=== PATIENT | female | born 1945 | race Caucasian/White ===

== ENCOUNTER 2020-09-23 05:20 | Day surgery (SDC) | payer OTHER, BC ==
[2020-09-20 10:09] VITALS: BMI 32.3
[2020-09-23] MEDS ORDERED: LIDOCAINE HCL 1%, 10 MG/ML (20ML VIAL) ONE (07:15)
[2020-09-23] MEDS ORDERED: BUPIVACAINE HCL/PF 0.25% (2.5MG/ML) 10 ML VIAL ONE (07:16)
[2020-09-23] MEDS ORDERED: MIDAZOLAM HCL 2 MG/2 ML SINGLE DOSE VIAL ONE (07:30)
[2020-09-23] MEDS ORDERED: PROPOFOL 20 ML ONE ×2 (07:31)
[2020-09-23] MEDS ORDERED: ROCURONIUM BROMIDE 100 MG/10 ML VIAL ONE (07:32)
[2020-09-23] MEDS ORDERED: SUCCINYLCHOLINE CHLORIDE 200 MG/10 ML SYRINGE ONE (07:32)
[2020-09-23] MEDS ORDERED: ceFAZolin SODIUM 1 GM VIAL IVPB ONE (08:15)
[2020-09-23] MEDS ORDERED: BUPIVACAINE HCL/PF 0.5% (5 MG/ML) 30 ML VIAL IJ ONE (08:36)
[2020-09-23] MEDS ORDERED: LIDOCAINE HCL 1%, 10 MG/ML (20ML VIAL) PNB ONE (08:39)
[2020-09-23 11:45] VITALS: PULSE 77; TEMP 97.6
[2020-09-23 11:51] VITALS: BP 128/56
[2020-09-23] MEDS ORDERED: ONDANSETRON 4 MG/2 ML VIAL IVPUSH PRN (11:55)
[2020-09-23] MEDS ORDERED: oxyCODONE HCL 5 MG TABLET PO PRN ×2 (11:55)
[2020-09-23] MEDS ORDERED: LACTATED RINGERS SOLUTION 1,000 ML IV SCH (12:00)
== END 2020-09-23 11:52 | disposition home or self-care (01) ==
LOC: JASU-SURG 05:20
PROVIDERS: ATTEND Internal Medicine
PROC: 0JH606Z Insertion of Pacemaker, Dual Chamber into Chest Subcutaneous Tissue and Fascia, Open Approach (ICD-10-PCS; 2020-09-23)
PROC: 0JPT0PZ Removal of Cardiac Rhythm Related Device from Trunk Subcutaneous Tissue and Fascia, Open Approach (ICD-10-PCS; principal; 2020-09-23 07:30)
DX: Z45.010 Encounter for checking and testing of cardiac pacemaker pulse generator [battery] (principal); I49.5 Sick sinus syndrome; I10 Essential (primary) hypertension
CPT/HCPCS: 33228; C1785; 88300-TC; 93005; 93010; 94760

== ENCOUNTER 2021-06-22 08:50 | Emergency (ER) | payer OTHER, BC ==
[2021-06-22 08:59] VITALS: BMI 36.6
[2021-06-22 09:01] VITALS: TEMP 98.5
[2021-06-22] MEDS ORDERED: LIDOCAINE 5% TOPICAL PATCH TP ONE (09:43)
[2021-06-22] MEDS ORDERED: ACETAMINOPHEN 325 MG TABLET (FP) PO ONE (09:43)
[2021-06-22] MEDS ORDERED: LIDOCAINE 5% TOPICAL PATCH ONE (09:59)
[2021-06-22] MEDS ORDERED: ACETAMINOPHEN 325 MG TABLET (FP) ONE (09:59)
[2021-06-22] MEDS ORDERED: CODEINE SO4 30 MG TABLET PO ONE (11:06)
[2021-06-22 12:53] VITALS: BP 132/83; PULSE 81
[2021-06-22] MEDS ORDERED: LIDOCAINE PATCH REMOVAL MC SCH (22:00)
== END 2021-06-22 12:55 | disposition home or self-care (01) ==
LOC: JER 08:50
DX: S40.021A Contusion of right upper arm, initial encounter (principal); S20.211A Contusion of right front wall of thorax, initial encounter; W19.XXXA Unspecified fall, initial encounter; Y92.9 Unspecified place or not applicable
CPT/HCPCS: 71045-TC-FY; 71101-TC-RT-FY; 73060-TC-RT-FY; 99284-25

== ENCOUNTER 2021-10-14 13:17 | Observation (INO) | payer OTHER, BC ==
[2021-10-14] MEDS ORDERED: METHOCARBAMOL 500 MG TABLET PO ONE (14:43)
[2021-10-14] MEDS ORDERED: ACETAMINOPHEN 325 MG TABLET (FP) PO ONE (14:43)
[2021-10-14] MEDS ORDERED: ACETAMINOPHEN 325 MG TABLET (FP) ONE (15:04)
[2021-10-14] MEDS ORDERED: METHOCARBAMOL 500 MG TABLET ONE (15:04)
[2021-10-14 16:39] LABS: BASO % 0.8 % (0-2.0); EOS % 1.8 % (0-4.5); HEMATOCRIT 37.3 % (32.4-45.2); HEMOGLOBIN 13.2 GM/dL (10.7-15.3); LYMPH % 22.1 % (8-40); MCH 29.7 pg (25.7-33.7); MCHC 35.5 g/dl (32.0-36.0); MEAN CELL VOLUME 83.7 fl (80-96); MEAN PLT VOLUME 8.1 fl (7.5-11.1); NEUT % 66.3 % (42.8-82.8); PLATELET COUNT 203 10^3/uL (134-434); RBC 4.46 M/mm3 (3.60-5.2); RDW 14.8 % (11.6-15.6); WHITE BLOOD COUNT 7.2 K/mm3 (4.0-10.0)
[2021-10-14 17:01] LABS: CHLORIDE 107 mmol/L (98-107); SODIUM 141 mmol/L (136-145)
[2021-10-14 17:03] LABS: ANION GAP 10 MMOL/L (8-16); BLOOD UREA NITROGEN 21.3 mg/dL (7-18); CALCIUM 9.2 mg/dL (8.5-10.1); CO2 24 mmol/L (21-32)
[2021-10-14 17:04] LABS: ALBUMIN 3.6 g/dl (3.4-5.0); GLUCOSE,RANDOM 94 mg/dL (74-106)
[2021-10-14 17:07] LABS: CREATININE 0.6 mg/dL (0.55-1.3); SGOT/AST 21 U/L (15-37); SGPT/ALT 26 U/L (13-61)
[2021-10-14 17:08] LABS: TOT PROT 7.5 g/dl (6.4-8.2)
[2021-10-14 17:09] LABS: BILIRUBIN,TOTAL 0.8 mg/dL (0.2-1)
[2021-10-14 17:10] LABS: ALK PHOS 79 U/L (45-117)
[2021-10-14 21:24] LABS: EPI CELLS 0 /uL (0-25.1); HYALINE CASTS 2 /uL (0-3.1); URINE APPEARANCE CLOUDY; URINE BACTERIA >9,000 /uL (0-1359); URINE BILIRUBIN NEGATIVE (NEGATIVE); URINE COLOR YELLOW; URINE GLUCOSE (UA) NEGATIVE (NEGATIVE); URINE KETONE NEGATIVE (NEGATIVE); URINE LEUK ESTERASE 2+ (NEGATIVE); URINE NITRITE POSITIVE (NEGATIVE); URINE PROTEIN TRACE (NEGATIVE); URINE RBC 14 /uL (0-23.9); URINE UROBILINOGEN 0.2 mg/dL (0.2-1.0); URINE WBC 534 /uL (0-25.8)
[2021-10-14] MEDS ORDERED: ACETAMINOPHEN 1000 MG/100 ML VIAL IVPB ONE (21:30)
[2021-10-14] MEDS ORDERED: ACETAMINOPHEN INJECTION 100 ML IVPB ONE (21:42)
[2021-10-14] MEDS ORDERED: CEFTRIAXONE 1 GM in DEXTROSE 5%-WATER - 50 ML IVPB ONE (23:06)
[2021-10-14] MEDS ORDERED: CEFTRIAXONE 1 GM/50 ML BAG ONE (23:31)
[2021-10-15] MEDS ORDERED: POTASSIUM CHLORIDE TABS 20 MEQ TABLET.ER (FP) PO ONE (01:04)
[2021-10-15] MEDS ORDERED: amLODIPine BESYLATE 5 MG TABLET (FP) ONE (01:27)
[2021-10-15] MEDS: amLODIPine BESYLATE 5 MG TABLET (FP) PO SCH ×2 (01:37→10:03)
[2021-10-15 03:10] VITALS: BMI 30.5
[2021-10-15] MEDS: ACETAMINOPHEN 325 MG TABLET (FP) PO PRN ×3 (03:11→22:24)
[2021-10-15 07:13] LABS: BASO % 0.6 % (0-2.0); EOS % 2.2 % (0-4.5); HEMATOCRIT 36.2 % (32.4-45.2); HEMOGLOBIN 12.8 GM/dL (10.7-15.3); LYMPH % 23.5 % (8-40); MCH 29.4 pg (25.7-33.7); MCHC 35.4 g/dl (32.0-36.0); MEAN CELL VOLUME 82.9 fl (80-96); MEAN PLT VOLUME 8.1 fl (7.5-11.1); MONO % 8.4 % (3.8-10.2); NEUT % 65.3 % (42.8-82.8); PLATELET COUNT 195 10^3/uL (134-434); RBC 4.36 M/mm3 (3.60-5.2); RDW 14.4 % (11.6-15.6); WHITE BLOOD COUNT 6.6 K/mm3 (4.0-10.0)
[2021-10-15 07:35] LABS: CALCIUM 8.8 mg/dL (8.5-10.1)
[2021-10-15 07:36] LABS: ALBUMIN 3.3 g/dl (3.4-5.0); MAGNESIUM 2.2 mg/dL (1.8-2.4)
[2021-10-15 07:37] LABS: PHOSPHOROUS 2.6 mg/dL (2.5-4.9)
[2021-10-15 07:38] LABS: BILIRUBIN,TOTAL 0.8 mg/dL (0.2-1); TOT PROT 7.2 g/dl (6.4-8.2)
[2021-10-15 07:39] LABS: CREATININE 0.5 mg/dL (0.55-1.3)
[2021-10-15] MEDS ORDERED: PT OWN MED DRAWER 7, Y5N ONE (09:16)
[2021-10-15] MEDS ORDERED: ALISKIREN HEMIFUMARATE 300 MG PO SCH (10:00)
[2021-10-15] MEDS: ASPIRIN COATED 81 MG TABLET.EC PO SCH (10:02)
[2021-10-15] MEDS: CHOLECALCIFEROL (VIT D3) 1,000 UNIT (25 MCG) TABLET PO SCH (10:02)
[2021-10-15] MEDS: HYDROCHLOROTHIAZIDE 25 MG TABLET (FP) PO SCH (10:03)
[2021-10-15] MEDS: ENOXAPARIN NA (PORCINE) 40 MG/0.4 ML DISP.SYRIN SQ SCH (10:05)
[2021-10-15] MEDS: POLYETHYLENE GLYCOL (HEALTHYLAX) 3350 17 GM PACKET PO SCH (10:05)
[2021-10-15] MEDS ORDERED: ALISKIREN HEMIFUMARATE 150 MG TABLET PO SCH (10:29)
[2021-10-15] MEDS ORDERED: PIPERACILLIN/TAZOBACTAM 3.375 GM VIAL IVPB ONE (14:01)
[2021-10-15] MEDS ORDERED: DEXTROSE 5%-WATER - 50 ML IVPB ONE (14:01)
[2021-10-15] MEDS: PIPERACILLIN/TAZOB 3.375 GM 3.375 GM in DEXTROSE 5%-WATER - 50 ML IVPB SCH ×2 (14:15→18:46)
[2021-10-15] MEDS ORDERED: FAMOTIDINE 20 MG TABLET PO SCH (22:00)
[2021-10-15] MEDS ORDERED: ATORVASTATIN CA 20 MG TABLET (FP) PO SCH (22:00)
[2021-10-16] MEDS ORDERED: DEXTROSE 5%-WATER - 50 ML IVPB ONE ×2 (01:59→11:38)
[2021-10-16] MEDS ORDERED: PIPERACILLIN/TAZOBACTAM 3.375 GM VIAL IVPB ONE ×2 (01:59→11:38)
[2021-10-16] MEDS: PIPERACILLIN/TAZOB 3.375 GM 3.375 GM in DEXTROSE 5%-WATER - 50 ML IVPB SCH ×2 (02:45→12:13)
[2021-10-16] MEDS: ACETAMINOPHEN 325 MG TABLET (FP) PO PRN (06:21)
[2021-10-16 06:56] LABS: HEMATOCRIT 35.9 % (32.4-45.2); HEMOGLOBIN 12.8 GM/dL (10.7-15.3); MCH 29.6 pg (25.7-33.7); MCHC 35.5 g/dl (32.0-36.0); MEAN CELL VOLUME 83.3 fl (80-96); PLATELET COUNT 216 10^3/uL (134-434); RBC 4.32 M/mm3 (3.60-5.2); RDW 14.4 % (11.6-15.6); WHITE BLOOD COUNT 6.2 K/mm3 (4.0-10.0)
[2021-10-16 07:18] LABS: BLOOD UREA NITROGEN 18.4 mg/dL (7-18); CALCIUM 9.2 mg/dL (8.5-10.1); MAGNESIUM 2.4 mg/dL (1.8-2.4)
[2021-10-16 07:21] LABS: CREATININE 0.7 mg/dL (0.55-1.3); PHOSPHOROUS 3.1 mg/dL (2.5-4.9)
[2021-10-16] MEDS ORDERED: PT OWN MED DRAWER 7, Y5N ONE (10:33)
[2021-10-16] MEDS: ENOXAPARIN NA (PORCINE) 40 MG/0.4 ML DISP.SYRIN SQ SCH (11:20)
[2021-10-16] MEDS: CHOLECALCIFEROL (VIT D3) 1,000 UNIT (25 MCG) TABLET PO SCH (11:20)
[2021-10-16] MEDS: amLODIPine BESYLATE 5 MG TABLET (FP) PO SCH (11:20)
[2021-10-16] MEDS: ASPIRIN COATED 81 MG TABLET.EC PO SCH (11:21)
[2021-10-16] MEDS: HYDROCHLOROTHIAZIDE 25 MG TABLET (FP) PO SCH (11:28)
[2021-10-16] MEDS: POLYETHYLENE GLYCOL (HEALTHYLAX) 3350 17 GM PACKET PO SCH (11:29)
[2021-10-16] MEDS ORDERED: POTASSIUM CHLORIDE TABS 20 MEQ TABLET.ER (FP) PO ONE (13:20)
[2021-10-16 15:30] VITALS: BP 133/67; PULSE 79; TEMP 97.8
== END 2021-10-16 16:58 | disposition home or self-care (01) ==
LOC: JER 13:17 → JERBED 15:04 → J4W 10-15 02:56
PROVIDERS: ATTEND Internal Medicine
PROC: 3E033NZ Introduction of Analgesics, Hypnotics, Sedatives into Peripheral Vein, Percutaneous Approach (ICD-10-PCS; principal; 2021-10-14)
PROC: 3E03329 Introduction of Other Anti-infective into Peripheral Vein, Percutaneous Approach (ICD-10-PCS; 2021-10-14)
PROC: 3E023GC Introduction of Other Therapeutic Substance into Muscle, Percutaneous Approach (ICD-10-PCS; 2021-10-14)
DX: N39.0 Urinary tract infection, site not specified (principal); W18.39XA Other fall on same level, initial encounter; R25.2 Cramp and spasm; Y93.89 Activity, other specified; Y92.89 Other specified places as the place of occurrence of the external cause; E66.9 Obesity, unspecified; Z68.30 Body mass index [BMI] 30.0-30.9, adult; Z95.0 Presence of cardiac pacemaker; I10 Essential (primary) hypertension; E78.5 Hyperlipidemia, unspecified; I48.91 Unspecified atrial fibrillation; M12.80 Other specific arthropathies, not elsewhere classified, unspecified site; Z96.643 Presence of artificial hip joint, bilateral; Z90.49 Acquired absence of other specified parts of digestive tract; Z88.2 Allergy status to sulfonamides; Z29.9 Encounter for prophylactic measures, unspecified
CPT/HCPCS: 36415; 70450-TC; 71045-TC-FY; 72125-TC; 72170-TC-FY; 73562-TC-RT-FY; 80048; 80053; 81003; 82550; 82553; 82962; 83735; 84100; 84443; 84484; 85025; 85027; 87086; 87186; 87804; 93005; 93010; 93306-TC; 93970-TC; 96365; 96372; 96375; 97116-GP; 97161-GP; 99285-25; C9803; G0378; J0131; U0003; U0005

== ENCOUNTER 2022-09-16 04:03 | Day surgery (SDC) | payer OTHER, BC ==
[2022-09-11 09:40] VITALS: BMI 32.2
[2022-09-16] MEDS ORDERED: BUPIVACAINE HCL/PF 0.25% (2.5MG/ML) 10 ML VIAL ONE (07:11)
[2022-09-16] MEDS ORDERED: LIDOCAINE HCL/PF 1% SDV 5ML VIAL ONE (07:12)
[2022-09-16] MEDS ORDERED: methylPREDNISolone ACET (DEPO) 80 MG/1 ML VIAL ONE (07:12)
[2022-09-16] MEDS ORDERED: MIDAZOLAM HCL 2 MG/2 ML SINGLE DOSE VIAL ONE (07:35)
[2022-09-16] MEDS ORDERED: ONDANSETRON 4 MG/2 ML VIAL ONE (07:56)
[2022-09-16] MEDS ORDERED: LIDOCAINE HCL 1%, 10 MG/ML (50 mL VIAL) NR ONE ×2 (07:57)
[2022-09-16] MEDS ORDERED: BUPIVACAINE HCL/PF 0.25% (2.5MG/ML) 10 ML VIAL IJ ONE ×2 (07:58)
[2022-09-16] MEDS ORDERED: methylPREDNISolone ACET (DEPO) 80 MG/1 ML VIAL IM ONE (07:58)
[2022-09-16 08:31] VITALS: RESP 20; TEMP 96.4
[2022-09-16 09:25] VITALS: BP 140/70; PULSE 82
== END 2022-09-16 09:29 | disposition home or self-care (01) ==
LOC: JASU-SURG 04:03
PROVIDERS: ATTEND Neurological Surgery
PROC: 3E0T33Z Introduction of Anti-inflammatory into Peripheral Nerves and Plexi, Percutaneous Approach (ICD-10-PCS; 2022-09-16)
PROC: 3E0T3BZ Introduction of Anesthetic Agent into Peripheral Nerves and Plexi, Percutaneous Approach (ICD-10-PCS; principal; 2022-09-16 07:30)
DX: M43.16 Spondylolisthesis, lumbar region (principal); M54.89 Other dorsalgia
CPT/HCPCS: 76000-TC-FY

== ENCOUNTER 2022-11-08 15:59 | Emergency (ER) | payer OTHER, BC ==
[2022-11-08 16:41] VITALS: RESP 20; TEMP 98.3; BMI 32.9
[2022-11-08 17:25] LABS: EOS % 5.7 % (0-4.5); HEMATOCRIT 39.7 % (32.4-45.2); HEMOGLOBIN 13.4 GM/dL (10.7-15.3); LYMPH % 20.6 % (8-40); MCH 28.7 pg (25.7-33.7); MCHC 33.8 g/dl (32.0-36.0); MEAN CELL VOLUME 84.9 fl (80-96); MEAN PLT VOLUME 8.5 fl (7.5-11.1); MONO % 10.1 % (3.8-10.2); NEUT % 62.6 % (42.8-82.8); PLATELET COUNT 221 10^3/uL (134-434); RBC 4.67 M/mm3 (3.60-5.2); RDW 15.4 % (11.6-15.6); WHITE BLOOD COUNT 7.4 K/mm3 (4.0-10.0)
[2022-11-08 17:32] LABS: INR 1.02 (0.83-1.09); PROTHROMBIN TIME (PATIENT) 11.7 SEC (9.7-13.0)
[2022-11-08 17:35] LABS: ACTIVATED PTT 32.4 SECONDS (25.2-36.5)
[2022-11-08 17:43] LABS: CALCIUM 9.9 mg/dL (8.5-10.1)
[2022-11-08 17:44] LABS: ALBUMIN 3.9 g/dl (3.4-5.0); BLOOD UREA NITROGEN 21.7 mg/dL (7-18)
[2022-11-08 17:47] LABS: CREATININE 0.7 mg/dL (0.55-1.3)
[2022-11-08 17:48] LABS: BILIRUBIN,TOTAL 0.7 mg/dL (0.2-1)
[2022-11-08 17:49] LABS: TOT PROT 7.6 g/dl (6.4-8.2)
[2022-11-08 17:52] LABS: N-TERMINAL BNP 81.2 pg/ml (5-450)
[2022-11-08 20:04] VITALS: BP 174/89; PULSE 84
== END 2022-11-08 20:04 | disposition home or self-care (01) ==
LOC: JER 15:59
DX: R07.89 Other chest pain (principal)
CPT/HCPCS: 0241U-QW; 36415; 71046-TC-FY; 80053; 83880; 84484; 85025; 85610; 85730; 93005; 93010; 99285-25

== ENCOUNTER 2022-11-16 04:32 | Day surgery (SDC) | payer OTHER, BC ==
[2022-11-12 16:04] VITALS: BMI 33.2
[2022-11-16] MEDS ORDERED: methylPREDNISolone ACET (DEPO) 80 MG/1 ML VIAL ONE (07:48)
[2022-11-16] MEDS ORDERED: BUPIVACAINE HCL/PF 0.25% (2.5MG/ML) 10 ML VIAL ONE (07:48)
[2022-11-16 08:11] VITALS: RESP 20
[2022-11-16] MEDS ORDERED: PROPOFOL 20 ML ONE (09:14)
[2022-11-16] MEDS ORDERED: BUPIVACAINE HCL/PF 0.25% (2.5MG/ML) 10 ML VIAL IJ ONE (09:15)
[2022-11-16] MEDS ORDERED: methylPREDNISolone ACET (DEPO) 80 MG/1 ML VIAL IJ ONE (09:15)
[2022-11-16] MEDS ORDERED: LIDOCAINE HCL 1% PRESERVATIVE FREE - 30ML VIAL IJ ONE (09:15)
[2022-11-16] MEDS ORDERED: ACETAMINOPHEN 325 MG TABLET (FP) PO ONE (09:45)
[2022-11-16 09:46] VITALS: BP 140/56
[2022-11-16] MEDS ORDERED: ACETAMINOPHEN 325 MG TABLET (FP) ONE (09:50)
[2022-11-16 11:14] VITALS: PULSE 70; TEMP 98
== END 2022-11-16 11:14 | disposition home or self-care (01) ==
LOC: JASU-SURG 04:32
PROVIDERS: ATTEND Neurological Surgery
PROC: 3E0T33Z Introduction of Anti-inflammatory into Peripheral Nerves and Plexi, Percutaneous Approach (ICD-10-PCS; 2022-11-16)
PROC: 3E0T3BZ Introduction of Anesthetic Agent into Peripheral Nerves and Plexi, Percutaneous Approach (ICD-10-PCS; principal; 2022-11-16 09:00)
DX: M43.16 Spondylolisthesis, lumbar region (principal); M54.16 Radiculopathy, lumbar region
CPT/HCPCS: 76000-TC-FY

== ENCOUNTER 2022-12-25 11:19 | Emergency (ER) | payer OTHER, BC ==
[2022-12-25 11:27] VITALS: BP 156/78; PULSE 86; RESP 16; TEMP 98.2; BMI 33.7
[2022-12-25] MEDS ORDERED: ACETAMINOPHEN 325 MG TABLET (FP) PO ONE (12:42)
[2022-12-25] MEDS ORDERED: LIDOCAINE 5% TOPICAL PATCH TP ONE (12:42)
[2022-12-25] MEDS ORDERED: LIDOCAINE 5% TOPICAL PATCH ONE (12:46)
[2022-12-25] MEDS ORDERED: ACETAMINOPHEN 325 MG TABLET (FP) ONE (12:47)
[2022-12-25] MEDS ORDERED: LIDOCAINE PATCH REMOVAL MC SCH (22:00)
== END 2022-12-25 15:39 | disposition home or self-care (01) ==
LOC: JERFT 11:19
DX: M54.40 Lumbago with sciatica, unspecified side (principal)
CPT/HCPCS: 72170-TC-FY; 73502-TC-LT-FY; 99284-25

== ENCOUNTER 2023-06-26 10:43 | Inpatient (IN) | payer OTHER, BC ==
[2023-06-26 12:28] LABS: BASO % 0.8 % (0-2.0); EOS % 2.8 % (0-4.5); HEMATOCRIT 39.3 % (32.4-45.2); HEMOGLOBIN 13.4 GM/dL (10.7-15.3); LYMPH % 14.3 % (8-40); MCH 27.7 pg (25.7-33.7); MCHC 34.1 g/dl (32.0-36.0); MEAN CELL VOLUME 81.3 fl (80-96); MONO % 10.5 % (3.8-10.2); NEUT % 71.6 % (42.8-82.8); PLATELET COUNT 223 10^3/uL (134-434); RBC 4.83 M/mm3 (3.60-5.2); RDW 16.5 % (11.6-15.6); WHITE BLOOD COUNT 7.1 K/mm3 (4.0-10.0)
[2023-06-26 12:35] LABS: EPI CELLS 24 /uL (0-25.1); HYALINE CASTS 5 /uL (0-3.1); URINE APPEARANCE TURBID; URINE BACTERIA >9,000 /uL (0-1359); URINE BILIRUBIN NEGATIVE (NEGATIVE); URINE COLOR YELLOW; URINE GLUCOSE (UA) NEGATIVE (NEGATIVE); URINE KETONE NEGATIVE (NEGATIVE); URINE LEUK ESTERASE 3+ (NEGATIVE); URINE NITRITE POSITIVE (NEGATIVE); URINE PROTEIN 1+ (NEGATIVE); URINE RBC 140 /uL (0-23.9); URINE UROBILINOGEN 0.2 mg/dL (0.2-1.0); URINE WBC 9677 /uL (0-25.8)
[2023-06-26 12:51] LABS: POTASSIUM 3.9 mmol/L (3.5-5.1)
[2023-06-26 12:56] LABS: ALBUMIN 3.8 g/dl (3.4-5.0); BLOOD UREA NITROGEN 20.7 mg/dL (7-18); CALCIUM 9.5 mg/dL (8.5-10.1)
[2023-06-26 12:58] LABS: CREATININE 0.9 mg/dL (0.55-1.3)
[2023-06-26 12:59] LABS: TOT PROT 7.7 g/dl (6.4-8.2)
[2023-06-26 13:01] LABS: ACTIVATED PTT 35.1 SECONDS (25.2-36.5); INR 1.09 (0.83-1.09); PROTHROMBIN TIME (PATIENT) 12.6 SEC (9.7-13.0)
[2023-06-26] MEDS ORDERED: CEFTRIAXONE 1,000 MG in DEXTROSE 5%-WATER - 50 ML IVPB ONE (14:03)
[2023-06-26] MEDS ORDERED: CEFTRIAXONE 1 GM/50 ML BAG ONE (14:21)
[2023-06-26] MEDS ORDERED: IBUPROFEN 600 MG TABLET (FP) PO ONE (15:00)
[2023-06-26] MEDS ORDERED: IBUPROFEN 400 MG TABLET (FP) PO ONE (15:14)
[2023-06-27] MEDS: ATORVASTATIN CA 20 MG TABLET (FP) PO SCH ×2 (00:20→22:34)
[2023-06-27] MEDS: HEPARIN NA (PORCINE) 5,000 UNITS/ML 1ML VIAL SQ SCH ×3 (00:20→22:34)
[2023-06-27] MEDS: GABAPENTIN 300 MG CAPSULE PO SCH ×2 (00:20→22:34)
[2023-06-27] MEDS: ASPIRIN COATED 81 MG TABLET.EC PO SCH ×2 (00:20→22:33)
[2023-06-27] MEDS: amLODIPine BESYLATE 5 MG TABLET (FP) PO SCH ×2 (00:21→22:35)
[2023-06-27 01:40] VITALS: BMI 32.3
[2023-06-27] MEDS: ACETAMINOPHEN 325 MG TABLET (FP) PO PRN ×2 (01:54→12:33)
[2023-06-27 09:18] LABS: EOS % 3.4 % (0-4.5); HEMATOCRIT 38.2 % (32.4-45.2); HEMOGLOBIN 13.7 GM/dL (10.7-15.3); MCH 28.7 pg (25.7-33.7); MCHC 35.9 g/dl (32.0-36.0); MEAN CELL VOLUME 79.8 fl (80-96); MEAN PLT VOLUME 7.8 fl (7.5-11.1); NEUT % 65.6 % (42.8-82.8); PLATELET COUNT 209 10^3/uL (134-434); RBC 4.78 M/mm3 (3.60-5.2); RDW 15.8 % (11.6-15.6); WHITE BLOOD COUNT 6.1 K/mm3 (4.0-10.0)
[2023-06-27] MEDS: FOLIC ACID 1 MG TABLET (FP) PO SCH (09:24)
[2023-06-27] MEDS: CEFTRIAXONE 1 GM in DEXTROSE 5%-WATER - 50 ML IVPB SCH (09:24)
[2023-06-27 09:44] LABS: POTASSIUM 3.5 mmol/L (3.5-5.1)
[2023-06-27 09:52] LABS: BLOOD UREA NITROGEN 20.8 mg/dL (7-18)
[2023-06-27 09:55] LABS: CREATININE 0.7 mg/dL (0.55-1.3)
[2023-06-27] MEDS ORDERED: PATIENT'S OWN MEDICATION (NON-FORMULARY) (Calcium Carbonate/Vitamin D3 [Calcium 600-Vit D3 PO SCH (10:00)
[2023-06-27] MEDS: CALCIUM 500MG/VIT-D 200 UNITS COMBO TABLET (FP) PO SCH (12:34)
[2023-06-27] MEDS: FAMOTIDINE 40 MG TABLET PO SCH (22:36)
[2023-06-28 10:09] LABS: EOS % 4.1 % (0-4.5); HEMATOCRIT 38.7 % (32.4-45.2); HEMOGLOBIN 13.7 GM/dL (10.7-15.3); LYMPH % 21.5 % (8-40); MCH 28.1 pg (25.7-33.7); MCHC 35.3 g/dl (32.0-36.0); MEAN CELL VOLUME 79.6 fl (80-96); MEAN PLT VOLUME 8.1 fl (7.5-11.1); MONO % 8.8 % (3.8-10.2); NEUT % 64.6 % (42.8-82.8); PLATELET COUNT 216 10^3/uL (134-434); RBC 4.86 M/mm3 (3.60-5.2); RDW 16.3 % (11.6-15.6); WHITE BLOOD COUNT 6.6 K/mm3 (4.0-10.0)
[2023-06-28] MEDS: HEPARIN NA (PORCINE) 5,000 UNITS/ML 1ML VIAL SQ SCH ×2 (10:14→22:19)
[2023-06-28] MEDS: CALCIUM 500MG/VIT-D 200 UNITS COMBO TABLET (FP) PO SCH (10:14)
[2023-06-28] MEDS: CEFTRIAXONE 1 GM in DEXTROSE 5%-WATER - 50 ML IVPB SCH (10:14)
[2023-06-28] MEDS: FOLIC ACID 1 MG TABLET (FP) PO SCH (10:14)
[2023-06-28 10:37] LABS: POTASSIUM 3.5 mmol/L (3.5-5.1)
[2023-06-28 10:39] LABS: CALCIUM 8.9 mg/dL (8.5-10.1); MAGNESIUM 2.2 mg/dL (1.8-2.4)
[2023-06-28 10:41] LABS: BLOOD UREA NITROGEN 23.1 mg/dL (7-18)
[2023-06-28 10:43] LABS: CREATININE 0.8 mg/dL (0.55-1.3)
[2023-06-28] MEDS: ACETAMINOPHEN 325 MG TABLET (FP) PO PRN (18:54)
[2023-06-28] MEDS: ATORVASTATIN CA 20 MG TABLET (FP) PO SCH (22:20)
[2023-06-28] MEDS: GABAPENTIN 300 MG CAPSULE PO SCH (22:20)
[2023-06-28] MEDS: ASPIRIN COATED 81 MG TABLET.EC PO SCH (22:20)
[2023-06-28] MEDS: amLODIPine BESYLATE 5 MG TABLET (FP) PO SCH (22:20)
[2023-06-28] MEDS: FAMOTIDINE 40 MG TABLET PO SCH (22:20)
[2023-06-29] MEDS ORDERED: cefTRIAXone SODIUM 1 GM VIAL ONE (09:23)
[2023-06-29] MEDS: CEFTRIAXONE 1 GM in DEXTROSE 5%-WATER - 50 ML IVPB SCH (09:33)
[2023-06-29] MEDS: HEPARIN NA (PORCINE) 5,000 UNITS/ML 1ML VIAL SQ SCH ×2 (09:34→22:59)
[2023-06-29] MEDS: CALCIUM 500MG/VIT-D 200 UNITS COMBO TABLET (FP) PO SCH (09:34)
[2023-06-29] MEDS: ACETAMINOPHEN 325 MG TABLET (FP) PO PRN ×2 (09:34→22:57)
[2023-06-29] MEDS: FOLIC ACID 1 MG TABLET (FP) PO SCH (09:34)
[2023-06-29 18:20] VITALS: RESP 18
[2023-06-29] MEDS: amLODIPine BESYLATE 5 MG TABLET (FP) PO SCH (22:57)
[2023-06-29] MEDS: ASPIRIN COATED 81 MG TABLET.EC PO SCH (22:57)
[2023-06-29] MEDS: ATORVASTATIN CA 20 MG TABLET (FP) PO SCH (22:57)
[2023-06-29] MEDS: FAMOTIDINE 40 MG TABLET PO SCH (22:57)
[2023-06-29] MEDS: GABAPENTIN 300 MG CAPSULE PO SCH (22:59)
[2023-06-30] MEDS: HEPARIN NA (PORCINE) 5,000 UNITS/ML 1ML VIAL SQ SCH ×2 (11:02→21:27)
[2023-06-30] MEDS: CEFTRIAXONE 1 GM in DEXTROSE 5%-WATER - 50 ML IVPB SCH (11:02)
[2023-06-30] MEDS: FOLIC ACID 1 MG TABLET (FP) PO SCH (11:02)
[2023-06-30] MEDS: CALCIUM 500MG/VIT-D 200 UNITS COMBO TABLET (FP) PO SCH (11:02)
[2023-06-30 11:20] LABS: HEMATOCRIT 38.5 % (32.4-45.2); HEMOGLOBIN 13.5 GM/dL (10.7-15.3); MCH 28.2 pg (25.7-33.7); MCHC 35.1 g/dl (32.0-36.0); MEAN CELL VOLUME 80.4 fl (80-96); PLATELET COUNT 200 10^3/uL (134-434); RBC 4.79 M/mm3 (3.60-5.2); RDW 16.2 % (11.6-15.6); WHITE BLOOD COUNT 7.6 K/mm3 (4.0-10.0)
[2023-06-30] MEDS: ACETAMINOPHEN 325 MG TABLET (FP) PO PRN ×2 (11:27→21:29)
[2023-06-30 12:09] LABS: POTASSIUM 3.1 mmol/L (3.5-5.1)
[2023-06-30 12:14] LABS: BLOOD UREA NITROGEN 25.5 mg/dL (7-18); CALCIUM 8.7 mg/dL (8.5-10.1)
[2023-06-30 12:16] LABS: ALBUMIN 3.2 g/dl (3.4-5.0)
[2023-06-30 12:18] LABS: CREATININE 0.8 mg/dL (0.55-1.3)
[2023-06-30 12:19] LABS: BILIRUBIN,TOTAL 0.7 mg/dL (0.2-1)
[2023-06-30] MEDS ORDERED: POTASSIUM CHLORIDE ORAL LIQUID 20 MEQ/15 ML PO ONE (14:15)
[2023-06-30] MEDS: FAMOTIDINE 40 MG TABLET PO SCH (21:26)
[2023-06-30] MEDS: ASPIRIN COATED 81 MG TABLET.EC PO SCH (21:26)
[2023-06-30] MEDS: ATORVASTATIN CA 20 MG TABLET (FP) PO SCH (21:26)
[2023-06-30] MEDS: amLODIPine BESYLATE 5 MG TABLET (FP) PO SCH (21:26)
[2023-06-30] MEDS: GABAPENTIN 300 MG CAPSULE PO SCH (21:26)
[2023-07-01] MEDS: ACETAMINOPHEN 325 MG TABLET (FP) PO PRN (08:23)
[2023-07-01] MEDS ORDERED: cefTRIAXone SODIUM 1 GM VIAL ONE (09:08)
[2023-07-01] MEDS: CALCIUM 500MG/VIT-D 200 UNITS COMBO TABLET (FP) PO SCH (09:58)
[2023-07-01] MEDS: HEPARIN NA (PORCINE) 5,000 UNITS/ML 1ML VIAL SQ SCH (09:58)
[2023-07-01] MEDS: FOLIC ACID 1 MG TABLET (FP) PO SCH (09:58)
[2023-07-01] MEDS: CEFTRIAXONE 1 GM in DEXTROSE 5%-WATER - 50 ML IVPB SCH (09:59)
[2023-07-01] MEDS ORDERED: LACTOBACILLUS ACIDOPHILUS 1 TABLET PO SCH (10:00)
[2023-07-01 10:57] VITALS: BP 140/86; PULSE 90; TEMP 97.5
[2023-07-01 11:59] LABS: HEMATOCRIT 37.7 % (32.4-45.2); HEMOGLOBIN 13.6 GM/dL (10.7-15.3); MCH 28.9 pg (25.7-33.7); MEAN CELL VOLUME 80.2 fl (80-96); PLATELET COUNT 207 10^3/uL (134-434); RDW 16.1 % (11.6-15.6); WHITE BLOOD COUNT 10.2 K/mm3 (4.0-10.0)
[2023-07-01 12:21] LABS: POTASSIUM 3.4 mmol/L (3.5-5.1)
[2023-07-01 12:24] LABS: ALBUMIN 3.3 g/dl (3.4-5.0); CALCIUM 8.8 mg/dL (8.5-10.1)
[2023-07-01 12:25] LABS: BLOOD UREA NITROGEN 28.8 mg/dL (7-18)
[2023-07-01 12:26] LABS: CREATININE 0.7 mg/dL (0.55-1.3)
[2023-07-01 12:29] LABS: BILIRUBIN,TOTAL 0.6 mg/dL (0.2-1); TOT PROT 7.1 g/dl (6.4-8.2)
== END 2023-07-01 14:32 | DRG 690 ==
LOC: JER 10:43 → JERBED 14:03 → J5S 23:24 → OBSVTOIN 06-28 10:24 → J5S 06-30 16:13
PROVIDERS: ADMIT Internal Medicine; ATTEND Internal Medicine
DX: N39.0 Urinary tract infection, site not specified (principal); B96.20 Unspecified Escherichia coli [E. coli] as the cause of diseases classified elsewhere; I10 Essential (primary) hypertension; E78.5 Hyperlipidemia, unspecified; K57.90 Diverticulosis of intestine, part unspecified, without perforation or abscess without bleeding; K44.9 Diaphragmatic hernia without obstruction or gangrene; I48.0 Paroxysmal atrial fibrillation; I25.10 Atherosclerotic heart disease of native coronary artery without angina pectoris; R35.0 Frequency of micturition; I44.7 Left bundle-branch block, unspecified; R55 Syncope and collapse; W18.30XA Fall on same level, unspecified, initial encounter; Y92.89 Other specified places as the place of occurrence of the external cause; Z95.0 Presence of cardiac pacemaker
CPT/HCPCS: 0241U-QW; 36415; 70450-TC; 71045-TC-FY; 72125-TC; 72170-TC-FY; 80048; 80053; 81003; 82550; 83735; 83880; 84443; 84484; 85025; 85027; 85610; 85730; 87086; 87186; 87635; 93005; 93010; 93970-TC; 97116-GP; 97162-GP; 99285-25; G0378; J1644

== ENCOUNTER 2023-08-05 15:12 | Inpatient (IN) | payer OTHER, BC ==
[2023-08-05 17:18] LABS: BASO % 0.5 % (0-2.0); EOS % 0.7 % (0-4.5); HEMOGLOBIN 12.7 GM/dL (10.7-15.3); LYMPH % 7.9 % (8-40); MCH 28.4 pg (25.7-33.7); MCHC 35.2 g/dl (32.0-36.0); MEAN CELL VOLUME 80.7 fl (80-96); MEAN PLT VOLUME 8.1 fl (7.5-11.1); MONO % 11.7 % (3.8-10.2); NEUT % 79.2 % (42.8-82.8); PLATELET COUNT 208 10^3/uL (134-434); RBC 4.46 M/mm3 (3.60-5.2); RDW 16.6 % (11.6-15.6); WHITE BLOOD COUNT 11.1 K/mm3 (4.0-10.0)
[2023-08-05 17:41] LABS: ACTIVATED PTT 33.7 SECONDS (25.2-36.5); INR 1.25 (0.83-1.09); PROTHROMBIN TIME (PATIENT) 14.5 SEC (9.7-13.0)
[2023-08-05 17:49] LABS: POTASSIUM 4.7 mmol/L (3.5-5.1)
[2023-08-05 17:50] LABS: CALCIUM 9.8 mg/dL (8.5-10.1)
[2023-08-05 17:51] LABS: ALBUMIN 3.3 g/dl (3.4-5.0); BLOOD UREA NITROGEN 40.1 mg/dL (7-18); MAGNESIUM 2.4 mg/dL (1.8-2.4)
[2023-08-05 17:54] LABS: PHOSPHOROUS 4.2 mg/dL (2.5-4.9)
[2023-08-05 17:56] LABS: CREATININE 1.5 mg/dL (0.55-1.3); TOT PROT 7.1 g/dl (6.4-8.2)
[2023-08-05] MEDS ORDERED: SODIUM CHLORIDE 0.9% 500 ML INFUS.BAG IV ONE (18:29)
[2023-08-05] MEDS ORDERED: ACETAMINOPHEN 1000 MG/100 ML BAG IVPB ONE ×2 (18:32→21:15)
[2023-08-05 20:38] VITALS: BMI 31.8
[2023-08-05] MEDS: GABAPENTIN 300 MG CAPSULE PO SCH (23:55)
[2023-08-05] MEDS: metoPROLOL SUCCINATE 25 MG TAB.SR.24H (FP) PO SCH (23:55)
[2023-08-06 02:59] LABS: EPI CELLS 21 /uL (0-25.1); HYALINE CASTS 2 /uL (0-3.1); PH,URINE 7.5 (5.0-8.0); URINE APPEARANCE CLOUDY; URINE BACTERIA >9,000 /uL (0-1359); URINE BILIRUBIN NEGATIVE (NEGATIVE); URINE COLOR YELLOW; URINE GLUCOSE (UA) NEGATIVE (NEGATIVE); URINE KETONE NEGATIVE (NEGATIVE); URINE LEUK ESTERASE 3+ (NEGATIVE); URINE NITRITE POSITIVE (NEGATIVE); URINE PROTEIN 1+ (NEGATIVE); URINE RBC 29 /uL (0-23.9); URINE WBC 262 /uL (0-25.8)
[2023-08-06] MEDS ORDERED: CEFTRIAXONE 1 GM in DEXTROSE 5%-WATER - 50 ML IVPB ONE ×2 (06:31→07:45)
[2023-08-06] MEDS ORDERED: ACETAMINOPHEN 1000 MG/100 ML BAG IVPB PRN (06:34)
[2023-08-06] MEDS: SODIUM CHLORIDE 1,000 ML IV SCH ×2 (06:40→19:23)
[2023-08-06] MEDS: HEPARIN NA (PORCINE) 5,000 UNITS/ML 1ML VIAL SQ SCH ×3 (06:41→21:20)
[2023-08-06 08:41] LABS: HEMATOCRIT 35.5 % (32.4-45.2); HEMOGLOBIN 12.2 GM/dL (10.7-15.3); MCH 27.7 pg (25.7-33.7); MCHC 34.4 g/dl (32.0-36.0); MEAN CELL VOLUME 80.6 fl (80-96); MEAN PLT VOLUME 8.2 fl (7.5-11.1); PLATELET COUNT 197 10^3/uL (134-434); RBC 4.41 M/mm3 (3.60-5.2); RDW 16.3 % (11.6-15.6)
[2023-08-06 09:05] LABS: POTASSIUM 3.8 mmol/L (3.5-5.1)
[2023-08-06] MEDS: GABAPENTIN 300 MG CAPSULE PO SCH ×2 (09:07→21:20)
[2023-08-06] MEDS: FAMOTIDINE 20 MG TABLET PO SCH (09:07)
[2023-08-06] MEDS: CHOLECALCIFEROL (VIT D3) 1,000 UNIT (25 MCG) TABLET PO SCH (09:07)
[2023-08-06] MEDS: amLODIPine BESYLATE 5 MG TABLET (FP) PO SCH (09:07)
[2023-08-06 09:16] LABS: CALCIUM 8.7 mg/dL (8.5-10.1)
[2023-08-06 09:18] LABS: ALBUMIN 2.9 g/dl (3.4-5.0); BLOOD UREA NITROGEN 36.6 mg/dL (7-18); MAGNESIUM 2.2 mg/dL (1.8-2.4); PHOSPHOROUS 3.6 mg/dL (2.5-4.9)
[2023-08-06 09:19] LABS: CREATININE 1.1 mg/dL (0.55-1.3)
[2023-08-06 09:20] LABS: BILIRUBIN,TOTAL 0.9 mg/dL (0.2-1); TOT PROT 6.6 g/dl (6.4-8.2)
[2023-08-06] MEDS ORDERED: FOLIC ACID 0.4 MG PO SCH (10:00)
[2023-08-06] MEDS: ATORVASTATIN CA 20 MG TABLET (FP) PO SCH (21:20)
[2023-08-06] MEDS: ASPIRIN COATED 81 MG TABLET.EC PO SCH (21:20)
[2023-08-06] MEDS: metoPROLOL SUCCINATE 25 MG TAB.SR.24H (FP) PO SCH (21:20)
[2023-08-07] MEDS: SODIUM CHLORIDE 1,000 ML IV SCH (04:59)
[2023-08-07] MEDS: HEPARIN NA (PORCINE) 5,000 UNITS/ML 1ML VIAL SQ SCH ×3 (06:15→21:27)
[2023-08-07 08:10] LABS: HEMATOCRIT 36.3 % (32.4-45.2); HEMOGLOBIN 12.3 GM/dL (10.7-15.3); MCH 27.4 pg (25.7-33.7); MEAN CELL VOLUME 80.7 fl (80-96); MEAN PLT VOLUME 8.6 fl (7.5-11.1); PLATELET COUNT 199 10^3/uL (134-434); RDW 16.2 % (11.6-15.6); WHITE BLOOD COUNT 6.8 K/mm3 (4.0-10.0)
[2023-08-07 08:22] LABS: POTASSIUM 3.6 mmol/L (3.5-5.1)
[2023-08-07 08:27] LABS: ALBUMIN 2.9 g/dl (3.4-5.0); BLOOD UREA NITROGEN 26.5 mg/dL (7-18); CALCIUM 8.8 mg/dL (8.5-10.1)
[2023-08-07 08:29] LABS: PHOSPHOROUS 2.7 mg/dL (2.5-4.9)
[2023-08-07 08:30] LABS: CREATININE 0.8 mg/dL (0.55-1.3)
[2023-08-07 08:31] LABS: BILIRUBIN,TOTAL 0.7 mg/dL (0.2-1); TOT PROT 6.9 g/dl (6.4-8.2)
[2023-08-07] MEDS: FAMOTIDINE 20 MG TABLET PO SCH (09:25)
[2023-08-07] MEDS: CHOLECALCIFEROL (VIT D3) 1,000 UNIT (25 MCG) TABLET PO SCH (09:25)
[2023-08-07] MEDS: amLODIPine BESYLATE 5 MG TABLET (FP) PO SCH (09:25)
[2023-08-07] MEDS: GABAPENTIN 300 MG CAPSULE PO SCH ×2 (09:25→21:27)
[2023-08-07] MEDS ORDERED: ALISKIREN HEMIFUMARATE 300 MG PO SCH (10:00)
[2023-08-07] MEDS: CEFTRIAXONE 1 GM in DEXTROSE 5%-WATER - 50 ML IVPB SCH (10:23)
[2023-08-07] MEDS: ASPIRIN COATED 81 MG TABLET.EC PO SCH (21:27)
[2023-08-07] MEDS: metoPROLOL SUCCINATE 25 MG TAB.SR.24H (FP) PO SCH (21:27)
[2023-08-07] MEDS: ATORVASTATIN CA 20 MG TABLET (FP) PO SCH (21:27)
[2023-08-08] MEDS: HEPARIN NA (PORCINE) 5,000 UNITS/ML 1ML VIAL SQ SCH ×3 (05:48→21:33)
[2023-08-08] MEDS: HYDROCHLOROTHIAZIDE 25 MG TABLET (FP) PO SCH (09:47)
[2023-08-08] MEDS: GABAPENTIN 300 MG CAPSULE PO SCH ×2 (09:47→21:33)
[2023-08-08] MEDS: CEFTRIAXONE 1 GM in DEXTROSE 5%-WATER - 50 ML IVPB SCH (09:47)
[2023-08-08] MEDS: CHOLECALCIFEROL (VIT D3) 1,000 UNIT (25 MCG) TABLET PO SCH (09:47)
[2023-08-08] MEDS: FAMOTIDINE 20 MG TABLET PO SCH (09:47)
[2023-08-08] MEDS: MEROPENEM 1 GM in DEXTROSE 5%-WATER 100 ML IVPB SCH ×2 (10:11→17:20)
[2023-08-08 10:26] LABS: HEMATOCRIT 36.2 % (32.4-45.2); HEMOGLOBIN 12.3 GM/dL (10.7-15.3); MCH 27.1 pg (25.7-33.7); MCHC 33.9 g/dl (32.0-36.0); MEAN CELL VOLUME 80.1 fl (80-96); MEAN PLT VOLUME 8.1 fl (7.5-11.1); PLATELET COUNT 225 10^3/uL (134-434); RBC 4.52 M/mm3 (3.60-5.2); RDW 16.3 % (11.6-15.6); WHITE BLOOD COUNT 5.4 K/mm3 (4.0-10.0)
[2023-08-08 10:41] LABS: POTASSIUM 3.6 mmol/L (3.5-5.1)
[2023-08-08 10:45] LABS: BLOOD UREA NITROGEN 21.6 mg/dL (7-18); CALCIUM 8.8 mg/dL (8.5-10.1)
[2023-08-08 10:46] LABS: ALBUMIN 2.7 g/dl (3.4-5.0); MAGNESIUM 2.1 mg/dL (1.8-2.4)
[2023-08-08 10:48] LABS: CREATININE 0.8 mg/dL (0.55-1.3); PHOSPHOROUS 2.5 mg/dL (2.5-4.9)
[2023-08-08 10:50] LABS: BILIRUBIN,TOTAL 0.6 mg/dL (0.2-1)
[2023-08-08] MEDS: ATORVASTATIN CA 20 MG TABLET (FP) PO SCH (21:32)
[2023-08-08] MEDS: ASPIRIN COATED 81 MG TABLET.EC PO SCH (21:32)
[2023-08-08] MEDS: metoPROLOL SUCCINATE 25 MG TAB.SR.24H (FP) PO SCH (22:00)
[2023-08-08] MEDS ORDERED: metoPROLOL SUCCINATE 25 MG TAB.SR.24H (FP) PO SCH (22:00)
[2023-08-09] MEDS: MEROPENEM 1 GM in DEXTROSE 5%-WATER 100 ML IVPB SCH ×3 (01:35→17:21)
[2023-08-09] MEDS: HEPARIN NA (PORCINE) 5,000 UNITS/ML 1ML VIAL SQ SCH ×3 (05:11→21:28)
[2023-08-09] MEDS ORDERED: ACETAMINOPHEN 325 MG TABLET (FP) PO PRN (08:07)
[2023-08-09] MEDS: HYDROCHLOROTHIAZIDE 25 MG TABLET (FP) PO SCH (09:56)
[2023-08-09] MEDS: CHOLECALCIFEROL (VIT D3) 1,000 UNIT (25 MCG) TABLET PO SCH (09:56)
[2023-08-09] MEDS: FAMOTIDINE 20 MG TABLET PO SCH (09:56)
[2023-08-09] MEDS: GABAPENTIN 300 MG CAPSULE PO SCH ×2 (09:56→21:33)
[2023-08-09] MEDS: ACETAMINOPHEN 325 MG TABLET (FP) PO PRN (09:57)
[2023-08-09 12:10] LABS: HEMATOCRIT 37.1 % (32.4-45.2); HEMOGLOBIN 12.5 GM/dL (10.7-15.3); MCH 26.9 pg (25.7-33.7); MCHC 33.6 g/dl (32.0-36.0); MEAN CELL VOLUME 79.9 fl (80-96); MEAN PLT VOLUME 7.9 fl (7.5-11.1); PLATELET COUNT 253 10^3/uL (134-434); RBC 4.64 M/mm3 (3.60-5.2); RDW 16.3 % (11.6-15.6); WHITE BLOOD COUNT 7.8 K/mm3 (4.0-10.0)
[2023-08-09 12:27] LABS: POTASSIUM 3.4 mmol/L (3.5-5.1)
[2023-08-09 12:32] LABS: ALBUMIN 2.8 g/dl (3.4-5.0); BLOOD UREA NITROGEN 24.3 mg/dL (7-18); CALCIUM 8.7 mg/dL (8.5-10.1); MAGNESIUM 2.3 mg/dL (1.8-2.4)
[2023-08-09 12:35] LABS: CREATININE 0.8 mg/dL (0.55-1.3); PHOSPHOROUS 2.7 mg/dL (2.5-4.9)
[2023-08-09 12:36] LABS: BILIRUBIN,TOTAL 0.6 mg/dL (0.2-1); TOT PROT 7.3 g/dl (6.4-8.2)
[2023-08-09] MEDS ORDERED: POTASSIUM CHLORIDE ORAL LIQUID 20 MEQ/15 ML PO ONE (13:08)
[2023-08-09] MEDS ORDERED: POTASSIUM CHLORIDE ORAL LIQUID 20 MEQ/15 ML PO SCH (13:15)
[2023-08-09] MEDS: ASPIRIN COATED 81 MG TABLET.EC PO SCH (21:27)
[2023-08-09] MEDS: ATORVASTATIN CA 20 MG TABLET (FP) PO SCH (21:27)
[2023-08-09] MEDS: metoPROLOL SUCCINATE 25 MG TAB.SR.24H (FP) PO SCH (21:33)
[2023-08-10] MEDS: MEROPENEM 1 GM in DEXTROSE 5%-WATER 100 ML IVPB SCH ×3 (01:35→17:28)
[2023-08-10] MEDS: HEPARIN NA (PORCINE) 5,000 UNITS/ML 1ML VIAL SQ SCH ×3 (06:03→21:34)
[2023-08-10] MEDS ORDERED: INSULIN (LEVEMIR) 100 UNITS/ML UNITS SQ ONE (07:45)
[2023-08-10] MEDS ORDERED: INSULIN (NOVOLOG) ASPART 100 UNITS/ML 10ML VIAL ONE (07:45)
[2023-08-10] MEDS: GABAPENTIN 300 MG CAPSULE PO SCH ×2 (09:54→21:34)
[2023-08-10] MEDS: CHOLECALCIFEROL (VIT D3) 1,000 UNIT (25 MCG) TABLET PO SCH (09:54)
[2023-08-10] MEDS: FAMOTIDINE 20 MG TABLET PO SCH (09:54)
[2023-08-10] MEDS: amLODIPine BESYLATE 5 MG TABLET (FP) PO SCH (09:54)
[2023-08-10] MEDS: HYDROCHLOROTHIAZIDE 25 MG TABLET (FP) PO SCH (09:54)
[2023-08-10 10:48] LABS: HEMATOCRIT 36.1 % (32.4-45.2); HEMOGLOBIN 12.6 GM/dL (10.7-15.3); MCH 27.2 pg (25.7-33.7); MCHC 34.7 g/dl (32.0-36.0); MEAN CELL VOLUME 78.4 fl (80-96); MEAN PLT VOLUME 7.7 fl (7.5-11.1); PLATELET COUNT 280 10^3/uL (134-434); RBC 4.61 M/mm3 (3.60-5.2); RDW 16.4 % (11.6-15.6); WHITE BLOOD COUNT 8.5 K/mm3 (4.0-10.0)
[2023-08-10 11:17] LABS: POTASSIUM 3.4 mmol/L (3.5-5.1)
[2023-08-10 11:22] LABS: ALBUMIN 2.9 g/dl (3.4-5.0); CALCIUM 8.7 mg/dL (8.5-10.1)
[2023-08-10 11:24] LABS: BLOOD UREA NITROGEN 22.6 mg/dL (7-18); MAGNESIUM 2.2 mg/dL (1.8-2.4)
[2023-08-10 11:25] LABS: CREATININE 0.7 mg/dL (0.55-1.3)
[2023-08-10 11:26] LABS: BILIRUBIN,TOTAL 0.8 mg/dL (0.2-1); PHOSPHOROUS 2.9 mg/dL (2.5-4.9); TOT PROT 7.3 g/dl (6.4-8.2)
[2023-08-10] MEDS ORDERED: POTASSIUM CHLORIDE ORAL LIQUID 20 MEQ/15 ML PO ONE (13:18)
[2023-08-10] MEDS ORDERED: BISMUTH SUBSALICYLATE 524 MG/30 ML PO ONE (15:15)
[2023-08-10] MEDS: metoPROLOL SUCCINATE 25 MG TAB.SR.24H (FP) PO SCH (21:34)
[2023-08-10] MEDS: ASPIRIN COATED 81 MG TABLET.EC PO SCH (21:34)
[2023-08-10] MEDS: ATORVASTATIN CA 20 MG TABLET (FP) PO SCH (21:35)
[2023-08-10] MEDS: ACETAMINOPHEN 325 MG TABLET (FP) PO PRN (22:13)
[2023-08-11] MEDS: MEROPENEM 1 GM in DEXTROSE 5%-WATER 100 ML IVPB SCH ×3 (01:01→17:29)
[2023-08-11] MEDS: HEPARIN NA (PORCINE) 5,000 UNITS/ML 1ML VIAL SQ SCH ×3 (05:17→21:05)
[2023-08-11 05:28] VITALS: RESP 18
[2023-08-11 10:18] LABS: HEMATOCRIT 37.1 % (32.4-45.2); HEMOGLOBIN 13.3 GM/dL (10.7-15.3); MCH 28.1 pg (25.7-33.7); MCHC 35.8 g/dl (32.0-36.0); MEAN CELL VOLUME 78.5 fl (80-96); MEAN PLT VOLUME 7.6 fl (7.5-11.1); PLATELET COUNT 330 10^3/uL (134-434); RBC 4.72 M/mm3 (3.60-5.2); RDW 16.4 % (11.6-15.6)
[2023-08-11] MEDS: HYDROCHLOROTHIAZIDE 25 MG TABLET (FP) PO SCH (10:24)
[2023-08-11] MEDS: GABAPENTIN 300 MG CAPSULE PO SCH ×2 (10:24→21:05)
[2023-08-11] MEDS: FAMOTIDINE 20 MG TABLET PO SCH (10:24)
[2023-08-11] MEDS: CHOLECALCIFEROL (VIT D3) 1,000 UNIT (25 MCG) TABLET PO SCH (10:24)
[2023-08-11 11:15] LABS: POTASSIUM 3.4 mmol/L (3.5-5.1)
[2023-08-11 11:20] LABS: CALCIUM 9.1 mg/dL (8.5-10.1); MAGNESIUM 2.3 mg/dL (1.8-2.4)
[2023-08-11 11:24] LABS: BILIRUBIN,TOTAL 1.1 mg/dL (0.2-1); CREATININE 0.9 mg/dL (0.55-1.3); PHOSPHOROUS 2.6 mg/dL (2.5-4.9); TOT PROT 7.4 g/dl (6.4-8.2)
[2023-08-11] MEDS: POTASSIUM CHLORIDE ORAL LIQUID 20 MEQ/15 ML PO SCH ×2 (14:16→21:04)
[2023-08-11] MEDS: ACETAMINOPHEN 325 MG TABLET (FP) PO PRN (21:05)
[2023-08-11] MEDS: metoPROLOL SUCCINATE 25 MG TAB.SR.24H (FP) PO SCH (21:05)
[2023-08-11] MEDS: ASPIRIN COATED 81 MG TABLET.EC PO SCH (21:05)
[2023-08-11] MEDS: ATORVASTATIN CA 20 MG TABLET (FP) PO SCH (21:05)
[2023-08-12] MEDS: MEROPENEM 1 GM in DEXTROSE 5%-WATER 100 ML IVPB SCH (01:49)
[2023-08-12] MEDS: HEPARIN NA (PORCINE) 5,000 UNITS/ML 1ML VIAL SQ SCH ×3 (06:16→21:05)
[2023-08-12] MEDS ORDERED: ERTAPENEM SODIUM 1 GM in SODIUM CHLORIDE 50 ML IVPB SCH (10:00)
[2023-08-12] MEDS: amLODIPine BESYLATE 5 MG TABLET (FP) PO SCH (11:08)
[2023-08-12] MEDS: GABAPENTIN 300 MG CAPSULE PO SCH ×2 (11:08→21:05)
[2023-08-12] MEDS: HYDROCHLOROTHIAZIDE 25 MG TABLET (FP) PO SCH (11:08)
[2023-08-12] MEDS: FAMOTIDINE 20 MG TABLET PO SCH (11:08)
[2023-08-12] MEDS: CHOLECALCIFEROL (VIT D3) 1,000 UNIT (25 MCG) TABLET PO SCH (11:08)
[2023-08-12] MEDS: ACETAMINOPHEN 325 MG TABLET (FP) PO PRN (11:29)
[2023-08-12 11:34] LABS: POTASSIUM 4.6 mmol/L (3.5-5.1)
[2023-08-12 11:38] LABS: CALCIUM 9.1 mg/dL (8.5-10.1)
[2023-08-12 11:39] LABS: ALBUMIN 3.1 g/dl (3.4-5.0); BLOOD UREA NITROGEN 30.7 mg/dL (7-18); MAGNESIUM 2.3 mg/dL (1.8-2.4)
[2023-08-12 11:42] LABS: CREATININE 0.8 mg/dL (0.55-1.3); PHOSPHOROUS 2.8 mg/dL (2.5-4.9)
[2023-08-12 11:43] LABS: BILIRUBIN,TOTAL 1.1 mg/dL (0.2-1); TOT PROT 7.8 g/dl (6.4-8.2)
[2023-08-12 13:19] LABS: HEMATOCRIT 37.6 % (32.4-45.2); HEMOGLOBIN 12.8 GM/dL (10.7-15.3); MCH 27.5 pg (25.7-33.7); MCHC 34.2 g/dl (32.0-36.0); MEAN CELL VOLUME 80.4 fl (80-96); MEAN PLT VOLUME 8.3 fl (7.5-11.1); PLATELET COUNT 370 10^3/uL (134-434); RBC 4.67 M/mm3 (3.60-5.2); RDW 16.8 % (11.6-15.6); WHITE BLOOD COUNT 13.1 K/mm3 (4.0-10.0)
[2023-08-12 14:49] VITALS: BP 115/67; PULSE 96; TEMP 98.4
[2023-08-12] MEDS: ATORVASTATIN CA 20 MG TABLET (FP) PO SCH (21:04)
[2023-08-12] MEDS: ASPIRIN COATED 81 MG TABLET.EC PO SCH (21:04)
[2023-08-12] MEDS: metoPROLOL SUCCINATE 25 MG TAB.SR.24H (FP) PO SCH (21:05)
== END 2023-08-12 21:30 | DRG 689 ==
LOC: JER 15:12 → JERBED 18:41 → J6S 19:50 → OBSVTOIN 08-06 13:51
PROVIDERS: ADMIT Internal Medicine; ATTEND Internal Medicine
PROC: 02HV33Z Insertion of Infusion Device into Superior Vena Cava, Percutaneous Approach (ICD-10-PCS; principal; 2023-08-12)
PROC: B518ZZA Fluoroscopy of Superior Vena Cava, Guidance (ICD-10-PCS; 2023-08-12)
DX: N39.0 Urinary tract infection, site not specified (principal); G93.41 Metabolic encephalopathy; N17.9 Acute kidney failure, unspecified; K21.9 Gastro-esophageal reflux disease without esophagitis; K57.90 Diverticulosis of intestine, part unspecified, without perforation or abscess without bleeding; I10 Essential (primary) hypertension; E78.00 Pure hypercholesterolemia, unspecified; E87.6 Hypokalemia; I48.91 Unspecified atrial fibrillation; R62.7 Adult failure to thrive; E66.9 Obesity, unspecified; Z68.31 Body mass index [BMI] 31.0-31.9, adult; D72.829 Elevated white blood cell count, unspecified; M47.816 Spondylosis without myelopathy or radiculopathy, lumbar region; M25.551 Pain in right hip; M25.552 Pain in left hip; B96.20 Unspecified Escherichia coli [E. coli] as the cause of diseases classified elsewhere; W18.39XA Other fall on same level, initial encounter; Y92.098 Other place in other non-institutional residence as the place of occurrence of the external cause; Z96.643 Presence of artificial hip joint, bilateral; Z95.0 Presence of cardiac pacemaker; Z16.12 Extended spectrum beta lactamase (ESBL) resistance
CPT/HCPCS: 0241U-QW; 36415; 36569; 70450-TC; 71045-TC-FY; 72125-TC; 72131-TC; 73521-TC-FY; 77001-TC-FY; 80053; 81003; 83735; 84100; 84443; 84484; 85025; 85027; 85610; 85730; 87086; 87186; 93005; 93010; 94761; 97116-GP; 97162-GP; 99285-25; C1751; G0378; J1644

== ENCOUNTER 2023-09-10 13:58 | Inpatient (IN) | payer OTHER, BC ==
[2023-09-10] MEDS ORDERED: ACETAMINOPHEN 1000 MG/100 ML BAG IVPB ONE (15:00)
[2023-09-10] MEDS ORDERED: FAMOTIDINE 20 MG/50 ML IVPB 20 MG/50 ML MG IVPB ONE ×2 (15:00→15:35)
[2023-09-10] MEDS ORDERED: ONDANSETRON 4 MG/2 ML VIAL IVPUSH ONE (15:00)
[2023-09-10] MEDS ORDERED: ONDANSETRON 4 MG/2 ML VIAL ONE (15:34)
[2023-09-10] MEDS ORDERED: ACETAMINOPHEN INJECTION 100 ML IVPB ONE (15:34)
[2023-09-10 16:20] LABS: BASO % 0.8 % (0-2.0); EOS % 2.6 % (0-4.5); HEMATOCRIT 41.5 % (32.4-45.2); LYMPH % 12.4 % (8-40); MCH 27.2 pg (25.7-33.7); MCHC 33.6 g/dl (32.0-36.0); MEAN CELL VOLUME 80.7 fl (80-96); MEAN PLT VOLUME 9.1 fl (7.5-11.1); MONO % 9.7 % (3.8-10.2); NEUT % 74.5 % (42.8-82.8); PLATELET COUNT 288 10^3/uL (134-434); RBC 5.15 M/mm3 (3.60-5.2); RDW 18.6 % (11.6-15.6); WHITE BLOOD COUNT 9.3 K/mm3 (4.0-10.0)
[2023-09-10 16:29] LABS: INR 1.65 (0.83-1.09); PROTHROMBIN TIME (PATIENT) 19.1 SEC (9.7-13.0)
[2023-09-10 16:32] LABS: ACTIVATED PTT 38.3 SECONDS (25.2-36.5)
[2023-09-10 16:39] LABS: POTASSIUM 4.1 mmol/L (3.5-5.1)
[2023-09-10 16:41] LABS: CALCIUM 10.9 mg/dL (8.5-10.1)
[2023-09-10 16:42] LABS: ALBUMIN 3.8 g/dl (3.4-5.0); BLOOD UREA NITROGEN 72.6 mg/dL (7-18)
[2023-09-10 16:45] LABS: CREATININE 1.6 mg/dL (0.55-1.3)
[2023-09-10 16:47] LABS: BILIRUBIN,TOTAL 0.8 mg/dL (0.2-1); TOT PROT 8.1 g/dl (6.4-8.2)
[2023-09-10] MEDS ORDERED: GABAPENTIN 300 MG CAPSULE PO ONE (22:00)
[2023-09-11] MEDS ORDERED: TRIMETHOBENZAMIDE HCL 200MG/2ML INJ IM PRN
[2023-09-11 00:38] LABS: EPI CELLS >36 /uL (0-25.1); HYALINE CASTS 3 /uL (0-3.1); URINE APPEARANCE TURBID; URINE BACTERIA >9,000 /uL (0-1359); URINE BILIRUBIN NEGATIVE (NEGATIVE); URINE COLOR YELLOW; URINE GLUCOSE (UA) NEGATIVE (NEGATIVE); URINE KETONE 1+ (NEGATIVE); URINE LEUK ESTERASE 3+ (NEGATIVE); URINE NITRITE POSITIVE (NEGATIVE); URINE PROTEIN 1+ (NEGATIVE); URINE RBC 2159 /uL (0-23.9); URINE WBC 10809 /uL (0-25.8)
[2023-09-11] MEDS ORDERED: GABAPENTIN 300 MG CAPSULE ONE (00:44)
[2023-09-11] MEDS: LACTATED RINGERS SOLUTION 1,000 ML/1,000 ML INFUS.BAG IV SCH (01:04)
[2023-09-11] MEDS ORDERED: MEROPENEM 1 GM VIAL (RESTRICTED TO ID) IVPB ONE (02:13)
[2023-09-11] MEDS: MEROPENEM 1 GM in DEXTROSE 5%-WATER 100 ML IVPB SCH ×3 (02:23→17:31)
[2023-09-11] MEDS: HEPARIN NA (PORCINE) 5,000 UNITS/ML 1ML VIAL SQ SCH ×3 (06:15→21:45)
[2023-09-11 09:14] LABS: HEMATOCRIT 37.2 % (32.4-45.2); HEMOGLOBIN 12.6 GM/dL (10.7-15.3); MCH 27.4 pg (25.7-33.7); MCHC 33.8 g/dl (32.0-36.0); MEAN CELL VOLUME 80.8 fl (80-96); MEAN PLT VOLUME 8.8 fl (7.5-11.1); PLATELET COUNT 241 10^3/uL (134-434); RDW 18.9 % (11.6-15.6)
[2023-09-11 09:27] LABS: POTASSIUM 4.2 mmol/L (3.5-5.1)
[2023-09-11 09:36] LABS: ALBUMIN 3.3 g/dl (3.4-5.0)
[2023-09-11 09:37] LABS: BLOOD UREA NITROGEN 63.1 mg/dL (7-18)
[2023-09-11 09:38] LABS: TOT PROT 7.3 g/dl (6.4-8.2)
[2023-09-11 09:39] LABS: MAGNESIUM 2.3 mg/dL (1.8-2.4); PHOSPHOROUS 3.3 mg/dL (2.5-4.9)
[2023-09-11 09:40] LABS: BILIRUBIN,TOTAL 0.7 mg/dL (0.2-1); CREATININE 1.3 mg/dL (0.55-1.3)
[2023-09-11] MEDS: ASPIRIN 325 MG TABLET PO SCH (10:37)
[2023-09-11] MEDS ORDERED: CYCLOBENZAPRINE HCL 5 MG TABLET PO ONE (12:30)
[2023-09-11] MEDS: metoPROLOL SUCCINATE 25 MG TAB.SR.24H (FP) PO SCH (19:33)
[2023-09-12] MEDS: LACTATED RINGERS SOLUTION 1,000 ML/1,000 ML INFUS.BAG IV SCH (00:31)
[2023-09-12] MEDS ORDERED: ACETAMINOPHEN 325 MG TABLET (FP) PO PRN (01:59)
[2023-09-12] MEDS ORDERED: MEROPENEM 1 GM in DEXTROSE 5%-WATER 100 ML IVPB SCH (02:00)
[2023-09-12] MEDS: MEROPENEM 1 GM in DEXTROSE 5%-WATER 100 ML IVPB SCH ×3 (02:08→17:59)
[2023-09-12] MEDS: HEPARIN NA (PORCINE) 5,000 UNITS/ML 1ML VIAL SQ SCH ×3 (05:00→22:10)
[2023-09-12 08:36] LABS: POTASSIUM 3.6 mmol/L (3.5-5.1)
[2023-09-12 08:46] LABS: CALCIUM 9.5 mg/dL (8.5-10.1)
[2023-09-12 08:47] LABS: MAGNESIUM 2.2 mg/dL (1.8-2.4)
[2023-09-12 08:48] LABS: BLOOD UREA NITROGEN 43.2 mg/dL (7-18); CREATININE 0.9 mg/dL (0.55-1.3)
[2023-09-12 08:49] LABS: BILIRUBIN,TOTAL 0.7 mg/dL (0.2-1); PHOSPHOROUS 2.4 mg/dL (2.5-4.9)
[2023-09-12 08:50] LABS: TOT PROT 6.6 g/dl (6.4-8.2)
[2023-09-12 08:58] LABS: BASO % 0.8 % (0-2.0); EOS % 6.4 % (0-4.5); HEMATOCRIT 35.5 % (32.4-45.2); HEMOGLOBIN 11.6 GM/dL (10.7-15.3); LYMPH % 19.2 % (8-40); MCH 26.9 pg (25.7-33.7); MCHC 32.8 g/dl (32.0-36.0); MEAN CELL VOLUME 82.2 fl (80-96); MEAN PLT VOLUME 9.1 fl (7.5-11.1); MONO % 8.1 % (3.8-10.2); NEUT % 65.5 % (42.8-82.8); PLATELET COUNT 209 10^3/uL (134-434); RBC 4.32 M/mm3 (3.60-5.2); RDW 18.7 % (11.6-15.6); WHITE BLOOD COUNT 5.6 K/mm3 (4.0-10.0)
[2023-09-12] MEDS: metoPROLOL SUCCINATE 25 MG TAB.SR.24H (FP) PO SCH (10:14)
[2023-09-12] MEDS: ASPIRIN 325 MG TABLET PO SCH (10:14)
[2023-09-12 14:09] VITALS: BMI 27.4
[2023-09-13] MEDS: LACTATED RINGERS SOLUTION 1,000 ML/1,000 ML INFUS.BAG IV SCH ×2 (00:15→03:28)
[2023-09-13] MEDS: MEROPENEM 1 GM in DEXTROSE 5%-WATER 100 ML IVPB SCH ×3 (01:28→17:34)
[2023-09-13] MEDS: HEPARIN NA (PORCINE) 5,000 UNITS/ML 1ML VIAL SQ SCH ×3 (06:08→21:37)
[2023-09-13 08:11] LABS: HEMATOCRIT 32.1 % (32.4-45.2); HEMOGLOBIN 11.4 GM/dL (10.7-15.3); MCH 28.3 pg (25.7-33.7); MCHC 35.5 g/dl (32.0-36.0); MEAN CELL VOLUME 79.9 fl (80-96); PLATELET COUNT 182 10^3/uL (134-434); POTASSIUM 3.5 mmol/L (3.5-5.1); RBC 4.02 M/mm3 (3.60-5.2); RDW 18.3 % (11.6-15.6); WHITE BLOOD COUNT 5.6 K/mm3 (4.0-10.0)
[2023-09-13 08:12] LABS: EOS % 4.7 % (0-4.5); MEAN PLT VOLUME 8.9 fl (7.5-11.1); MONO % 10.3 % (3.8-10.2)
[2023-09-13 08:13] LABS: ALBUMIN 2.9 g/dl (3.4-5.0); BLOOD UREA NITROGEN 26.8 mg/dL (7-18)
[2023-09-13 08:16] LABS: CREATININE 0.6 mg/dL (0.55-1.3); PHOSPHOROUS 1.7 mg/dL (2.5-4.9)
[2023-09-13 08:18] LABS: BILIRUBIN,TOTAL 0.6 mg/dL (0.2-1); TOT PROT 6.3 g/dl (6.4-8.2)
[2023-09-13] MEDS: AMINO ACIDS/PROTEIN HYDROLYS 30 ML LIQUID.PKT PO SCH (09:08)
[2023-09-13] MEDS: MULTIVIT-MINERALS ORAL LIQUID PO SCH (10:37)
[2023-09-13] MEDS: ASPIRIN COATED 81 MG TABLET.EC PO SCH (10:37)
[2023-09-13] MEDS: metoPROLOL SUCCINATE 25 MG TAB.SR.24H (FP) PO SCH (10:39)
[2023-09-13] MEDS ORDERED: PROMETHAZINE HCL 25 MG/1 ML VIAL IM ONE (15:00)
[2023-09-13] MEDS: CYCLOBENZAPRINE HCL 5 MG TABLET PO PRN (15:36)
[2023-09-13] MEDS: ASCORBIC ACID 500 MG TABLET (FP) PO SCH (21:37)
[2023-09-13] MEDS: GABAPENTIN 300 MG CAPSULE PO SCH (21:37)
[2023-09-14] MEDS: LACTATED RINGERS SOLUTION 1,000 ML/1,000 ML INFUS.BAG IV SCH ×2 (00:30→05:18)
[2023-09-14] MEDS: MEROPENEM 1 GM in DEXTROSE 5%-WATER 100 ML IVPB SCH ×3 (03:32→17:44)
[2023-09-14] MEDS: HEPARIN NA (PORCINE) 5,000 UNITS/ML 1ML VIAL SQ SCH ×3 (06:50→21:40)
[2023-09-14] MEDS: AMINO ACIDS/PROTEIN HYDROLYS 30 ML LIQUID.PKT PO SCH (07:58)
[2023-09-14] MEDS ORDERED: REGADENOSON 0.4 MG/5 ML PRE-FILLED SYRINGE IVPUSH ONE ×2 (09:57→11:15)
[2023-09-14] MEDS ORDERED: AMINOPHYLLINE 250 MG/10 ML VIAL IVPUSH ONE (11:30)
[2023-09-14] MEDS ORDERED: AMINOPHYLLINE 250 MG/10 ML VIAL ONE (11:49)
[2023-09-14] MEDS: FAMOTIDINE 20 MG TABLET PO SCH (13:11)
[2023-09-14] MEDS: ASCORBIC ACID 500 MG TABLET (FP) PO SCH ×2 (13:12→21:40)
[2023-09-14] MEDS: ASPIRIN COATED 81 MG TABLET.EC PO SCH (13:12)
[2023-09-14] MEDS: POLYETHYLENE GLYCOL (HEALTHYLAX) 3350 17 GM PACKET PO SCH (13:12)
[2023-09-14] MEDS: metoPROLOL SUCCINATE 25 MG TAB.SR.24H (FP) PO SCH (13:12)
[2023-09-14] MEDS: GABAPENTIN 300 MG CAPSULE PO SCH ×2 (13:12→21:40)
[2023-09-14] MEDS: MULTIVIT-MINERALS ORAL LIQUID PO SCH (13:13)
[2023-09-15] MEDS: MEROPENEM 1 GM in DEXTROSE 5%-WATER 100 ML IVPB SCH ×2 (01:06→10:10)
[2023-09-15] MEDS: HEPARIN NA (PORCINE) 5,000 UNITS/ML 1ML VIAL SQ SCH ×3 (06:36→22:54)
[2023-09-15 08:13] LABS: POTASSIUM 3.2 mmol/L (3.5-5.1)
[2023-09-15 08:23] LABS: BASO % 0.9 % (0-2.0); EOS % 5.5 % (0-4.5); HEMATOCRIT 32.7 % (32.4-45.2); HEMOGLOBIN 11.5 GM/dL (10.7-15.3); LYMPH % 17.9 % (8-40); MCH 27.9 pg (25.7-33.7); MCHC 35.2 g/dl (32.0-36.0); MEAN CELL VOLUME 79.5 fl (80-96); MEAN PLT VOLUME 8.6 fl (7.5-11.1); MONO % 9.2 % (3.8-10.2); NEUT % 66.5 % (42.8-82.8); PLATELET COUNT 183 10^3/uL (134-434); RBC 4.12 M/mm3 (3.60-5.2); RDW 18.2 % (11.6-15.6); WHITE BLOOD COUNT 6.5 K/mm3 (4.0-10.0)
[2023-09-15 08:24] LABS: CALCIUM 8.3 mg/dL (8.5-10.1); MAGNESIUM 1.9 mg/dL (1.8-2.4)
[2023-09-15 08:25] LABS: ALBUMIN 2.7 g/dl (3.4-5.0)
[2023-09-15 08:28] LABS: BILIRUBIN,TOTAL 0.9 mg/dL (0.2-1); CREATININE 0.4 mg/dL (0.55-1.3); PHOSPHOROUS 1.8 mg/dL (2.5-4.9); TOT PROT 6.1 g/dl (6.4-8.2)
[2023-09-15] MEDS: AMINO ACIDS/PROTEIN HYDROLYS 30 ML LIQUID.PKT PO SCH (10:09)
[2023-09-15] MEDS: GABAPENTIN 300 MG CAPSULE PO SCH ×2 (10:10→22:54)
[2023-09-15] MEDS: MULTIVIT-MINERALS ORAL LIQUID PO SCH (10:10)
[2023-09-15] MEDS: ASCORBIC ACID 500 MG TABLET (FP) PO SCH ×2 (10:10→22:54)
[2023-09-15] MEDS: ASPIRIN COATED 81 MG TABLET.EC PO SCH (10:10)
[2023-09-15] MEDS: POTASSIUM CHLORIDE TABS 20 MEQ TABLET.ER (FP) PO SCH ×2 (10:11→22:54)
[2023-09-15] MEDS: NAPH,MB-DB/K PH,MBDB POWDER PACKET PO SCH ×2 (10:11→22:54)
[2023-09-15] MEDS: POLYETHYLENE GLYCOL (HEALTHYLAX) 3350 17 GM PACKET PO SCH (10:11)
[2023-09-15] MEDS: FAMOTIDINE 20 MG TABLET PO SCH (10:11)
[2023-09-15] MEDS: metoPROLOL SUCCINATE 25 MG TAB.SR.24H (FP) PO SCH (10:11)
[2023-09-15] MEDS: CYCLOBENZAPRINE HCL 5 MG TABLET PO PRN (22:53)
[2023-09-16] MEDS: HEPARIN NA (PORCINE) 5,000 UNITS/ML 1ML VIAL SQ SCH ×3 (06:06→22:49)
[2023-09-16 08:26] LABS: BASO % 0.8 % (0-2.0); EOS % 5.7 % (0-4.5); HEMATOCRIT 34.5 % (32.4-45.2); HEMOGLOBIN 12.1 GM/dL (10.7-15.3); LYMPH % 18.4 % (8-40); MCH 27.7 pg (25.7-33.7); MCHC 34.9 g/dl (32.0-36.0); MEAN CELL VOLUME 79.4 fl (80-96); MEAN PLT VOLUME 8.8 fl (7.5-11.1); NEUT % 65.1 % (42.8-82.8); PLATELET COUNT 184 10^3/uL (134-434); RBC 4.35 M/mm3 (3.60-5.2); RDW 18.9 % (11.6-15.6); WHITE BLOOD COUNT 6.5 K/mm3 (4.0-10.0)
[2023-09-16 08:32] LABS: POTASSIUM 3.8 mmol/L (3.5-5.1)
[2023-09-16] MEDS: AMINO ACIDS/PROTEIN HYDROLYS 30 ML LIQUID.PKT PO SCH (08:33)
[2023-09-16 08:39] LABS: ALBUMIN 2.9 g/dl (3.4-5.0)
[2023-09-16 08:41] LABS: BLOOD UREA NITROGEN 19.6 mg/dL (7-18)
[2023-09-16 08:42] LABS: CALCIUM 8.9 mg/dL (8.5-10.1); MAGNESIUM 1.9 mg/dL (1.8-2.4)
[2023-09-16 08:45] LABS: CREATININE 0.6 mg/dL (0.55-1.3); PHOSPHOROUS 1.9 mg/dL (2.5-4.9)
[2023-09-16 08:46] LABS: BILIRUBIN,TOTAL 0.9 mg/dL (0.2-1); TOT PROT 6.3 g/dl (6.4-8.2)
[2023-09-16] MEDS: NAPH,MB-DB/K PH,MBDB POWDER PACKET PO SCH ×2 (09:33→22:49)
[2023-09-16] MEDS: GABAPENTIN 300 MG CAPSULE PO SCH ×2 (09:33→22:49)
[2023-09-16] MEDS: ASCORBIC ACID 500 MG TABLET (FP) PO SCH ×2 (09:33→22:49)
[2023-09-16] MEDS: ASPIRIN COATED 81 MG TABLET.EC PO SCH (09:33)
[2023-09-16] MEDS: POLYETHYLENE GLYCOL (HEALTHYLAX) 3350 17 GM PACKET PO SCH (09:34)
[2023-09-16] MEDS: metoPROLOL SUCCINATE 25 MG TAB.SR.24H (FP) PO SCH (09:34)
[2023-09-16] MEDS: MULTIVIT-MINERALS ORAL LIQUID PO SCH (09:34)
[2023-09-16] MEDS: FAMOTIDINE 20 MG TABLET PO SCH (09:34)
[2023-09-17] MEDS: HEPARIN NA (PORCINE) 5,000 UNITS/ML 1ML VIAL SQ SCH ×2 (06:30→14:26)
[2023-09-17 07:23] LABS: BASO % 0.9 % (0-2.0); EOS % 6.6 % (0-4.5); HEMATOCRIT 35.2 % (32.4-45.2); HEMOGLOBIN 11.8 GM/dL (10.7-15.3); LYMPH % 23.2 % (8-40); MCH 27.3 pg (25.7-33.7); MCHC 33.4 g/dl (32.0-36.0); MEAN CELL VOLUME 81.6 fl (80-96); MEAN PLT VOLUME 9.3 fl (7.5-11.1); MONO % 10.1 % (3.8-10.2); NEUT % 59.2 % (42.8-82.8); PLATELET COUNT 198 10^3/uL (134-434); RBC 4.31 M/mm3 (3.60-5.2); RDW 19.2 % (11.6-15.6); WHITE BLOOD COUNT 5.5 K/mm3 (4.0-10.0)
[2023-09-17 08:07] LABS: POTASSIUM 3.4 mmol/L (3.5-5.1)
[2023-09-17 08:20] LABS: CALCIUM 8.7 mg/dL (8.5-10.1)
[2023-09-17 08:21] LABS: ALBUMIN 2.7 g/dl (3.4-5.0); BLOOD UREA NITROGEN 22.1 mg/dL (7-18); MAGNESIUM 1.9 mg/dL (1.8-2.4)
[2023-09-17 08:24] LABS: CREATININE 0.4 mg/dL (0.55-1.3); PHOSPHOROUS 2.6 mg/dL (2.5-4.9)
[2023-09-17 08:25] LABS: BILIRUBIN,TOTAL 1.1 mg/dL (0.2-1); TOT PROT 6.1 g/dl (6.4-8.2)
[2023-09-17] MEDS: GABAPENTIN 300 MG CAPSULE PO SCH (10:05)
[2023-09-17] MEDS: ASCORBIC ACID 500 MG TABLET (FP) PO SCH (10:05)
[2023-09-17] MEDS: FAMOTIDINE 20 MG TABLET PO SCH (10:05)
[2023-09-17] MEDS: AMINO ACIDS/PROTEIN HYDROLYS 30 ML LIQUID.PKT PO SCH (10:06)
[2023-09-17] MEDS: ASPIRIN COATED 81 MG TABLET.EC PO SCH (10:06)
[2023-09-17] MEDS: metoPROLOL SUCCINATE 25 MG TAB.SR.24H (FP) PO SCH (10:06)
[2023-09-17] MEDS: NAPH,MB-DB/K PH,MBDB POWDER PACKET PO SCH (10:06)
[2023-09-17] MEDS: MULTIVIT-MINERALS ORAL LIQUID PO SCH (10:07)
[2023-09-17] MEDS: POLYETHYLENE GLYCOL (HEALTHYLAX) 3350 17 GM PACKET PO SCH (10:07)
[2023-09-17 10:19] VITALS: BP 144/69; PULSE 98; RESP 19; TEMP 98.2
[2023-09-17] MEDS ORDERED: POTASSIUM CHLORIDE ORAL LIQUID 20 MEQ/15 ML PO ONE (13:21)
== END 2023-09-17 14:59 | DRG 683 ==
LOC: JER 13:58 → JERBED 22:02 → J4W 09-11 04:44 → OBSVTOIN 09-11 19:18
PROVIDERS: ADMIT Internal Medicine; ATTEND Internal Medicine
DX: N17.9 Acute kidney failure, unspecified (principal); I24.89 Other forms of acute ischemic heart disease; N39.0 Urinary tract infection, site not specified; Z16.12 Extended spectrum beta lactamase (ESBL) resistance; R11.2 Nausea with vomiting, unspecified; I48.0 Paroxysmal atrial fibrillation; I10 Essential (primary) hypertension; I44.7 Left bundle-branch block, unspecified; K21.9 Gastro-esophageal reflux disease without esophagitis; E78.5 Hyperlipidemia, unspecified; R07.89 Other chest pain; N13.30 Unspecified hydronephrosis; G62.9 Polyneuropathy, unspecified; E86.0 Dehydration
CPT/HCPCS: 36415; 70450-TC; 71045-TC-FY; 71275-TC; 72133-TC; 74177-TC; 76775-TC; 78452-TC; 80053; 80061; 81003; 82550; 82570; 82607; 83690; 83735; 84100; 84155; 84165; 84300; 84443; 84484; 84540; 85025; 85027; 85610; 85730; 87077; 87086; 87635; 93005; 93010; 93017; 93306-TC; 97116-GP; 97162-GP; 99285-25; A9502; G0378; J1644; J2785; Q9967

== ENCOUNTER 2024-03-24 05:06 | Inpatient (IN) | payer OTHER, BC ==
[2024-03-24 07:00] LABS: BASO % 0.3 % (0-2.0); EOS % 0.7 % (0-4.5); HEMATOCRIT 34.8 % (32.4-45.2); HEMOGLOBIN 12.1 GM/dL (10.7-15.3); LYMPH % 6.6 % (8-40); MCHC 34.8 g/dl (32.0-36.0); MEAN CELL VOLUME 83.4 fl (80-96); MONO % 9.3 % (3.8-10.2); NEUT % 83.1 % (42.8-82.8); PLATELET COUNT 191 10^3/uL (134-434); RBC 4.17 M/mm3 (3.60-5.2); RDW 15.3 % (11.6-15.6); WHITE BLOOD COUNT 13.2 K/mm3 (4.0-10.0)
[2024-03-24 07:00] LABS: INR 1.06 (0.83-1.09)
[2024-03-24 07:19] LABS: POTASSIUM 3.7 mmol/L (3.5-5.1)
[2024-03-24 07:21] LABS: CALCIUM 9.4 mg/dL (8.5-10.1)
[2024-03-24 07:22] LABS: ALBUMIN 3.8 g/dl (3.4-5.0); BLOOD UREA NITROGEN 21.3 mg/dL (7-18); MAGNESIUM 1.9 mg/dL (1.8-2.4)
[2024-03-24 07:25] LABS: CREATININE 0.8 mg/dL (0.55-1.3); PHOSPHOROUS 2.8 mg/dL (2.5-4.9)
[2024-03-24 07:26] LABS: BILIRUBIN,TOTAL 1.1 mg/dL (0.2-1)
[2024-03-24 07:27] LABS: TOT PROT 7.3 g/dl (6.4-8.2)
[2024-03-24 07:59] LABS: EPI CELLS 22 /uL (0-25.1); HYALINE CASTS 13 /uL (0-3.1); URINE APPEARANCE TURBID; URINE BACTERIA >9,000 /uL (0-1359); URINE BILIRUBIN NEGATIVE (NEGATIVE); URINE COLOR YELLOW; URINE GLUCOSE (UA) NEGATIVE (NEGATIVE); URINE KETONE NEGATIVE (NEGATIVE); URINE LEUK ESTERASE 3+ (NEGATIVE); URINE NITRITE POSITIVE (NEGATIVE); URINE PROTEIN 1+ (NEGATIVE); URINE RBC 1238 /uL (0-23.9); URINE UROBILINOGEN 0.2 mg/dL (0.2-1.0); URINE WBC 17924 /uL (0-25.8)
[2024-03-24] MEDS ORDERED: PIPERACILLIN/TAZOB 4.5 GM 4.5 GM/100 ML BAG IVPB ONE ×2 (08:25→08:29)
[2024-03-24] MEDS: PIPERACILLIN/TAZOB 4.5 GM 4.5 GM in DEXTROSE 5%-WATER 100 ML IVPB ONE (08:41)
[2024-03-24 09:14] VITALS: RESP 18
[2024-03-24] MEDS ORDERED: PATIENT'S OWN MEDICATION (NON-FORMULARY) (Meloxicam 15 MG Tablet) PO SCH (10:00)
[2024-03-24] MEDS ORDERED: MEROPENEM 1 GM in DEXTROSE 5%-WATER 100 ML IVPB ONE (11:14)
[2024-03-24 11:34] VITALS: BMI 27.6
[2024-03-24 11:51] LABS: BILIRUBIN,DIRECT 0.2 mg/dL (0.0-0.2)
[2024-03-24] MEDS: MEROPENEM 1 GM in DEXTROSE 5%-WATER 100 ML IVPB SCH ×2 (12:53→18:01)
[2024-03-24] MEDS: GABAPENTIN 300 MG CAPSULE PO SCH (13:23)
[2024-03-24] MEDS: LORazepam 0.5 MG TABLET PO PRN (19:30)
[2024-03-24] MEDS: ASPIRIN COATED 81 MG TABLET.EC PO SCH (22:37)
[2024-03-24] MEDS: ATORVASTATIN CA 20 MG TABLET (FP) PO SCH (22:37)
[2024-03-25] MEDS: ASCORBIC ACID 500 MG TABLET (FP) PO SCH (09:19)
[2024-03-25] MEDS: FAMOTIDINE 20 MG TABLET PO SCH (09:19)
[2024-03-25] MEDS: ALISKIREN HEMIFUMARATE 150 MG TABLET PO SCH (09:20)
[2024-03-25] MEDS: CALCIUM 500MG/VIT-D 200 UNITS COMBO TABLET (FP) PO SCH (09:20)
[2024-03-25] MEDS: ENOXAPARIN NA (PORCINE) 40 MG/0.4 ML DISP.SYRIN SQ SCH (09:20)
[2024-03-25] MEDS: POTASSIUM CHLORIDE TABS 10 MEQ TABLET.ER (FP) PO SCH (09:28)
[2024-03-25] MEDS ORDERED: HYDROCHLOROTHIAZIDE 25 MG TABLET (FP) PO SCH (10:00)
[2024-03-25 10:06] LABS: BASO % 0.6 % (0-2.0); EOS % 1.5 % (0-4.5); HEMOGLOBIN 12.3 GM/dL (10.7-15.3); LYMPH % 15.2 % (8-40); MCH 29.2 pg (25.7-33.7); MCHC 35.1 g/dl (32.0-36.0); MEAN CELL VOLUME 83.1 fl (80-96); MEAN PLT VOLUME 7.6 fl (7.5-11.1); MONO % 7.2 % (3.8-10.2); NEUT % 75.5 % (42.8-82.8); PLATELET COUNT 198 10^3/uL (134-434); RBC 4.21 M/mm3 (3.60-5.2); RDW 15.5 % (11.6-15.6)
[2024-03-25 10:09] LABS: POTASSIUM 3.4 mmol/L (3.5-5.1)
[2024-03-25 10:17] LABS: ALBUMIN 3.3 g/dl (3.4-5.0); CALCIUM 9.3 mg/dL (8.5-10.1)
[2024-03-25 10:20] LABS: CREATININE 0.8 mg/dL (0.55-1.3); PHOSPHOROUS 3.2 mg/dL (2.5-4.9)
[2024-03-25 10:30] LABS: TOT PROT 6.8 g/dl (6.4-8.2)
[2024-03-25] MEDS: amLODIPine BESYLATE 5 MG TABLET (FP) PO SCH (21:32)
[2024-03-26 08:56] LABS: HEMATOCRIT 34.2 % (32.4-45.2); HEMOGLOBIN 12.2 GM/dL (10.7-15.3); MCH 29.5 pg (25.7-33.7); MCHC 35.8 g/dl (32.0-36.0); MEAN CELL VOLUME 82.5 fl (80-96); MEAN PLT VOLUME 7.4 fl (7.5-11.1); PLATELET COUNT 201 10^3/uL (134-434); RBC 4.14 M/mm3 (3.60-5.2); WHITE BLOOD COUNT 7.1 K/mm3 (4.0-10.0)
[2024-03-26 09:24] LABS: POTASSIUM 3.8 mmol/L (3.5-5.1)
[2024-03-26 09:43] LABS: BILIRUBIN,TOTAL 0.8 mg/dL (0.2-1); TOT PROT 6.7 g/dl (6.4-8.2)
[2024-03-26 09:44] LABS: CALCIUM 8.9 mg/dL (8.5-10.1)
[2024-03-26 09:45] LABS: ALBUMIN 3.1 g/dl (3.4-5.0); BLOOD UREA NITROGEN 21.2 mg/dL (7-18)
[2024-03-26 09:47] LABS: CREATININE 0.7 mg/dL (0.55-1.3)
[2024-03-27 08:31] LABS: HEMATOCRIT 32.7 % (32.4-45.2); HEMOGLOBIN 11.9 GM/dL (10.7-15.3); MCH 29.7 pg (25.7-33.7); MCHC 36.3 g/dl (32.0-36.0); MEAN CELL VOLUME 81.8 fl (80-96); MEAN PLT VOLUME 7.3 fl (7.5-11.1); PLATELET COUNT 215 10^3/uL (134-434); RDW 15.3 % (11.6-15.6); WHITE BLOOD COUNT 6.5 K/mm3 (4.0-10.0)
[2024-03-27 08:51] LABS: POTASSIUM 3.7 mmol/L (3.5-5.1)
[2024-03-27 08:58] LABS: ALBUMIN 3.2 g/dl (3.4-5.0); BLOOD UREA NITROGEN 21.3 mg/dL (7-18); CALCIUM 9.1 mg/dL (8.5-10.1)
[2024-03-27 09:01] LABS: CREATININE 0.6 mg/dL (0.55-1.3)
[2024-03-27 09:03] LABS: BILIRUBIN,TOTAL 0.7 mg/dL (0.2-1)
[2024-03-27 09:04] LABS: TOT PROT 6.5 g/dl (6.4-8.2)
[2024-03-28] MEDS: ERTAPENEM SODIUM 1 GM in SODIUM CHLORIDE 50 ML IVPB SCH (11:00)
[2024-03-28 16:45] VITALS: BP 141/81; PULSE 72; TEMP 97.9
== END 2024-03-28 19:14 | DRG 871 ==
LOC: JER 05:06 → JERBED 06:07 → J6S 11:06 → OBSVTOIN 11:34
PROVIDERS: ADMIT Internal Medicine; ATTEND Internal Medicine
PROC: 05HY33Z Insertion of Infusion Device into Upper Vein, Percutaneous Approach (ICD-10-PCS; principal; 2024-03-28)
DX: A41.51 Sepsis due to Escherichia coli [E. coli] (principal); G93.41 Metabolic encephalopathy; N39.0 Urinary tract infection, site not specified; F13.20 Sedative, hypnotic or anxiolytic dependence, uncomplicated; Z16.12 Extended spectrum beta lactamase (ESBL) resistance; E78.5 Hyperlipidemia, unspecified; G62.9 Polyneuropathy, unspecified; I48.91 Unspecified atrial fibrillation; K21.9 Gastro-esophageal reflux disease without esophagitis; B96.20 Unspecified Escherichia coli [E. coli] as the cause of diseases classified elsewhere; F41.9 Anxiety disorder, unspecified; I10 Essential (primary) hypertension; B95.4 Other streptococcus as the cause of diseases classified elsewhere
CPT/HCPCS: 0241U-QW; 36415; 36569; 70450-TC; 70460-TC; 71045-TC-FY; 73030-TC-RT-FY; 80053; 81003; 82248; 83735; 84100; 84484; 85025; 85027; 85610; 85730; 86850; 86900; 86901; 87086; 87186; 87635; 93005; 93010; 97116-GP; 97162-GP; 99285-25; G0378; Q9967

== ENCOUNTER 2024-05-08 20:58 | Inpatient (IN) | payer OTHER, BC ==
[2024-05-08 22:47] LABS: EOS % 5.5 % (0-4.5); HEMOGLOBIN 11.9 GM/dL (10.7-15.3); LYMPH % 22.7 % (8-40); MCH 28.2 pg (25.7-33.7); MCHC 34.8 g/dl (32.0-36.0); MEAN PLT VOLUME 7.4 fl (7.5-11.1); MONO % 10.4 % (3.8-10.2); NEUT % 60.4 % (42.8-82.8); PLATELET COUNT 208 10^3/uL (134-434); RDW 15.7 % (11.6-15.6); WHITE BLOOD COUNT 5.9 K/mm3 (4.0-10.0)
[2024-05-08 22:55] LABS: INR 0.98 (0.83-1.09); PROTHROMBIN TIME (PATIENT) 11.3 SEC (9.7-13.0)
[2024-05-08 22:57] LABS: ACTIVATED PTT 31.3 SECONDS (25.2-36.5)
[2024-05-08 23:08] LABS: ALBUMIN 3.6 g/dl (3.4-5.0); CALCIUM 9.2 mg/dL (8.5-10.1); MAGNESIUM 2.1 mg/dL (1.8-2.4)
[2024-05-08 23:11] LABS: CREATININE 1.1 mg/dL (0.55-1.3)
[2024-05-08 23:13] LABS: BILIRUBIN,TOTAL 0.5 mg/dL (0.2-1); TOT PROT 7.1 g/dl (6.4-8.2)
[2024-05-09 00:24] LABS: EPI CELLS 16 /uL (0-25.1); HYALINE CASTS 1 /uL (0-3.1); PH,URINE 5.5 (5.0-8.0); URINE APPEARANCE CLOUDY; URINE BACTERIA 542 /uL (0-1359); URINE BILIRUBIN NEGATIVE (NEGATIVE); URINE COLOR YELLOW; URINE GLUCOSE (UA) NEGATIVE (NEGATIVE); URINE KETONE TRACE (NEGATIVE); URINE LEUK ESTERASE 3+ (NEGATIVE); URINE NITRITE NEGATIVE (NEGATIVE); URINE PROTEIN 1+ (NEGATIVE); URINE RBC 475 /uL (0-23.9); URINE UROBILINOGEN 0.2 mg/dL (0.2-1.0); URINE WBC 1051 /uL (0-25.8)
[2024-05-09] MEDS ORDERED: MEROPENEM 1 GM VIAL (RESTRICTED TO ID) IVPB ONE (00:57)
[2024-05-09] MEDS: MEROPENEM 1 GM in DEXTROSE 5%-WATER 100 ML IVPB ONE (01:03)
[2024-05-09 04:01] VITALS: BMI 29.0
[2024-05-09 08:08] LABS: BASO % 0.9 % (0-2.0); EOS % 4.3 % (0-4.5); HEMATOCRIT 32.4 % (32.4-45.2); HEMOGLOBIN 11.4 GM/dL (10.7-15.3); LYMPH % 18.4 % (8-40); MCH 28.5 pg (25.7-33.7); MCHC 35.2 g/dl (32.0-36.0); MEAN CELL VOLUME 80.9 fl (80-96); MEAN PLT VOLUME 7.9 fl (7.5-11.1); NEUT % 67.4 % (42.8-82.8); PLATELET COUNT 178 10^3/uL (134-434); RDW 15.5 % (11.6-15.6); WHITE BLOOD COUNT 5.3 K/mm3 (4.0-10.0)
[2024-05-09 08:20] LABS: POTASSIUM 3.9 mmol/L (3.5-5.1)
[2024-05-09 08:33] LABS: ALBUMIN 3.4 g/dl (3.4-5.0); BLOOD UREA NITROGEN 23.4 mg/dL (7-18); MAGNESIUM 1.9 mg/dL (1.8-2.4)
[2024-05-09 08:36] LABS: CREATININE 0.7 mg/dL (0.55-1.3)
[2024-05-09 08:37] LABS: PHOSPHOROUS 3.6 mg/dL (2.5-4.9); TOT PROT 6.6 g/dl (6.4-8.2)
[2024-05-09 08:39] LABS: BILIRUBIN,TOTAL 0.8 mg/dL (0.2-1)
[2024-05-09] MEDS: LORazepam 2 MG/ML SDV VIAL IVPUSH ONE (08:56)
[2024-05-09] MEDS: ENOXAPARIN NA (PORCINE) 40 MG/0.4 ML DISP.SYRIN SQ SCH (09:48)
[2024-05-09] MEDS: MEROPENEM 1 GM in DEXTROSE 5%-WATER 100 ML IVPB SCH (09:49)
[2024-05-09] MEDS ORDERED: MEROPENEM 1 GM in DEXTROSE 5%-WATER 100 ML IVPB SCH (10:00)
[2024-05-09] MEDS: ASCORBIC ACID 500 MG TABLET (FP) PO SCH (10:35)
[2024-05-09] MEDS: POTASSIUM CHLORIDE TABS 10 MEQ TABLET.ER (FP) PO SCH (10:35)
[2024-05-09] MEDS: FAMOTIDINE 20 MG TABLET PO SCH (10:35)
[2024-05-09] MEDS ORDERED: LORazepam 1 MG TABLET PO PRN (11:18)
[2024-05-09] MEDS: GABAPENTIN 300 MG CAPSULE PO SCH (15:34)
[2024-05-09] MEDS: LORazepam 2 MG/ML SDV VIAL IVPUSH PRN (16:33)
[2024-05-09] MEDS: ASPIRIN COATED 81 MG TABLET.EC PO SCH (22:13)
[2024-05-09] MEDS: METOPROLOL TARTRATE 50 MG TABLET (FP) PO SCH (22:13)
[2024-05-09] MEDS: amLODIPine BESYLATE 5 MG TABLET (FP) PO SCH (22:13)
[2024-05-09] MEDS: ATORVASTATIN CA 20 MG TABLET (FP) PO SCH (22:13)
[2024-05-10] MEDS: METOPROLOL TARTRATE 50 MG TABLET (FP) PO SCH (06:31)
[2024-05-10] MEDS ORDERED: PATIENT'S OWN MEDICATION (NON-FORMULARY) (Metoprolol Tartrate [Lopressor] 100 MG Tablet) PO SCH (07:00)
[2024-05-10 09:21] LABS: HEMATOCRIT 36.6 % (32.4-45.2); HEMOGLOBIN 12.8 GM/dL (10.7-15.3); MCH 28.1 pg (25.7-33.7); MCHC 34.9 g/dl (32.0-36.0); MEAN CELL VOLUME 80.6 fl (80-96); MEAN PLT VOLUME 7.6 fl (7.5-11.1); PLATELET COUNT 238 10^3/uL (134-434); RBC 4.54 M/mm3 (3.60-5.2); RDW 15.7 % (11.6-15.6); WHITE BLOOD COUNT 6.4 K/mm3 (4.0-10.0)
[2024-05-10 09:39] LABS: POTASSIUM 3.9 mmol/L (3.5-5.1)
[2024-05-10 09:41] LABS: BLOOD UREA NITROGEN 16.5 mg/dL (7-18); CALCIUM 9.7 mg/dL (8.5-10.1); MAGNESIUM 1.9 mg/dL (1.8-2.4)
[2024-05-10 09:44] LABS: CREATININE 0.8 mg/dL (0.55-1.3)
[2024-05-10 09:45] LABS: PHOSPHOROUS 3.3 mg/dL (2.5-4.9)
[2024-05-15 00:51] LABS: BLOOD UREA NITROGEN 16.7 mg/dL (7-18); GLUCOSE,RANDOM 137 mg/dL (74-106)
[2024-05-15 00:52] LABS: CALCIUM 8.9 mg/dL (8.5-10.1); CHLORIDE 108 mmol/L (98-107); CO2 24 mmol/L (21-32); CREATININE 0.7 mg/dL (0.55-1.3); POTASSIUM 3.6 mmol/L (3.5-5.1); SODIUM 137 mmol/L (136-145)
[2024-05-15 00:53] LABS: ALBUMIN 3.3 g/dl (3.4-5.0); ALK PHOS 99 U/L (45-117); BILIRUBIN,TOTAL 0.8 mg/dL (0.2-1); SGOT/AST 12 U/L (15-37); SGPT/ALT 13 U/L (13-61); TOT PROT 6.5 g/dl (6.4-8.2)
[2024-05-15 09:53] LABS: EOS % 3.5 % (0-4.5); HEMATOCRIT 34.6 % (32.4-45.2); HEMOGLOBIN 12.3 GM/dL (10.7-15.3); LYMPH % 17.7 % (8-40); MCH 28.4 pg (25.7-33.7); MCHC 35.4 g/dl (32.0-36.0); MEAN CELL VOLUME 80.1 fl (80-96); MONO % 8.8 % (3.8-10.2); PLATELET COUNT 235 10^3/uL (134-434); RBC 4.33 M/mm3 (3.60-5.2); RDW 15.8 % (11.6-15.6); WHITE BLOOD COUNT 6.7 K/mm3 (4.0-10.0)
[2024-05-15 10:33] LABS: ALBUMIN 3.4 g/dl (3.4-5.0); BLOOD UREA NITROGEN 15.7 mg/dL (7-18); CALCIUM 9.4 mg/dL (8.5-10.1); CREATININE 0.7 mg/dL (0.55-1.3); POTASSIUM 3.8 mmol/L (3.5-5.1)
[2024-05-15 10:38] LABS: TOT PROT 6.7 g/dl (6.4-8.2)
[2024-05-16 11:47] VITALS: BP 123/64; PULSE 63; RESP 18; TEMP 98.9
== END 2024-05-16 14:13 | DRG 689 ==
LOC: JER 20:58 → JERBED 05-09 01:19 → J5S 05-09 03:21
PROVIDERS: ADMIT Internal Medicine; ATTEND Internal Medicine
DX: N39.0 Urinary tract infection, site not specified (principal); G93.41 Metabolic encephalopathy; Z16.12 Extended spectrum beta lactamase (ESBL) resistance; I10 Essential (primary) hypertension; E78.5 Hyperlipidemia, unspecified; I48.91 Unspecified atrial fibrillation
CPT/HCPCS: 0241U-QW; 36415; 70450-TC; 71045-TC-FY; 80048; 80053; 81003; 82962; 83735; 84100; 84484; 85025; 85027; 85610; 85730; 86850; 86900; 86901; 87086; 87186; 87635; 93005; 93010; 97116-GP; 97161-GP; 99285-25